=== PATIENT | male | born 1945 | race Caucasian/White ===

== ENCOUNTER 2017-08-09 22:20 | Inpatient (IN) ==
[2017-08-09] MEDS ORDERED: NS 1,000 ML IV ONE (22:28)
--- OUTSIDE RECORDS SUMMARY | 2017-08-09 22:47 | External Medical Summary | Summary of Care ---
:1945 Author Name Amos Brothers M.D. Address [address] [place] [address] Dr Georgia Ortega, [place] [address] Care Team Providers Name Role Phone Amos Brothers M.D. 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 Benign prostatic hypertrophy (BPH) with incomplete bladder emptying (600.01, N40.1) Status: Active Gross hematuria (599.71, R31.0) Status: Active Presence of indwelling urethral catheter (V45.89, Z98.89) Status: Active Encounter for antineoplastic chemotherapy (V58.11, Z51.11) Status: Active Malignant neoplasm of other specified sites of bladder (188.8, C67.9) Status : Active Epididymitis with no abscess (604.90, N45.1) Status: Active Urinary retention (788.20, R33.9) Status: Active Postoperative visit (V58.49, Z48.89) Status: Active Bladder cancer screening (V76.3, Z12.6) Status: Active History of bladder cancer (V10.51, Z85.51) Status: Active 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 Started 28-May-2015 ActiveLidocaine HCl - 2 % External Gel Refills: 0 Started 28-May-2015 ActiveDiphenhist 25 MG Oral Tablet TAKE 1 TABLET AT BEDTIME. Refills: 0 Started 28-May-2015 ActiveAleve 220 MG Oral Capsule Refills: 0 Started 28-May-2015 ActiveRanitidine HCl - 150 MG Oral Tablet Refills: 0 Started 28-May-2015 ActiveCoumadin 5 MG Oral Tablet TAKE 1 TABLET DAILY DIRECTED. Refills: 0 Started 28-May-2015 ActiveOndansetron 4 MG Oral Tablet Dispersible Refills: 0 Started 28-May-2015 ActiveMetFORMIN HCl - 850 MG Oral Tablet TAKE 1 TABLET TWICE DAILY WITH MEALS. Refills: 0 Started 28-May-2015 ActiveCinnamon 500 MG Oral Capsule TAKE DIRECTED. Refills: 0 Started 28-May-2015 ActiveSotalol HCl - 80 MG Oral Tablet TAKE 1 TABLET TWICE DAILY. Refills: 0 Started 28-May-2015 ActiveAllopurinol 300 MG Oral Tablet TAKE 1 TABLET DAILY. Refills: 0 Started 28-May-2015 ActiveSimvastatin 40 MG Oral Tablet TAKE 1 TABLET DAILY. Refills: 0 Started 28-May-2015 ActiveGlimepiride 2 MG Oral Tablet Refills: 0 Started 28-May-2015 ActiveFurosemide 20 MG Oral Tablet TAKE 1 TABLET DAILY. Refills: 0 Started 28-May-2015 ActiveLisinopril 40 MG Oral Tablet TAKE 1 TABLET DAILY. Refills: 0 Started 28-May-2015 Active Allergies and Adverse Reactions Name Dates Details Acetaminophen TABS Status: Active gemfibrozil Status: Active Lortab TABS Status: Active Past Medical History Name Dates Details Benign prostate hyperplasia (600.00, N40.0) Status: Active History of ACD (adult celiac disease) (579.0, K90.0) Status: Resolved History of arthritis (V13.4, Z87.39) Status: Resolved History of atrial fibrillation (V12.59, Z86.79) Status: Resolved History of Cataracts, both eyes (366.9, H26.9) Status: Resolved History of Coronary artery disease (414.00, I25.10) Status: Resolved History of diabetes mellitus (V12.29, Z86.39) Status: Resolved History of Dyslipidemia (272.4, E78.5) Status: Resolved 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, 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) Status: Resolved History of gout (V12.29, Z87.39) Status: Resolved History of Hallux valgus (735.0, M20.10) Status: Resolved History of hiatal hernia (V12.79, Z87.19) Status: Resolved History of hypertension (V12.59, Z86.79) Status: Resolved History of Hypertriglyceridemia (272.1, E78.1) Status: Resolved History of measles (V12.09, Z86.19) Status: Resolved History of obesity (V13.89, Z86.39) Status: Resolved History of Obstructive sleep apnea (327.23, G47.33) Status: Resolved History of urinary tract infection (V13.02, Z87.440) Status: Resolved History of varicella (V12.09, Z86.19) Status: Resolved Procedures Procedure Dates Details History of Tonsillectomy History of Pilonidal Cyst Resection History of Appendectomy History of Back Surgery History of Rotator Cuff Repair History of Colonoscopy History Of Prior Surgery History of Lumbar Vertebral Fusion History of Cystoscopy (Diagnostic) History of Transureth Resect Prostate (TURP) Complete, Incl Control Of Postop Bleeding CYTOLOGY - URINE 4444 Ordered:15-Sep-2015 Immunization Name Dates Details Immunizations not documented Family History Unknown Family Member Name Dates Details Family history of coronary artery disease (V17.3, Z82.49) Comments: Family History Status: Active Family history of diabetes mellitus (V18.0, Z83.3) Comments: Family History Status: Active Family history of arthritis (V17.7, Z82.61) Comments: Family History Status: Active Family history of asthma (V17.5, Z82.5) Comments: Family History Status: Active Mother Name Dates Details No pertinent family history Status: Active Social History Name Dates Details Smoking StatusFormer smoker Vital Signs Date Test Result Details 15-Sep-2015 09:51 BP Systolic 153 mm[Hg] Status: BP Diastolic 84 mm[Hg] Status: Heart Rate 80 /min Status: Height 71 in Status: Weight 250 lb Status: Body Mass Index Calculated 34.87 kg/m2 Status: Body Surface Area Calculated 2.32 m2 Status: Results Date Description Value Details Results not documented Plan of Care Planned Observations Name Dates Details Planned Goals not documented Goal Planned Encounters Appointment; Provider: Amos Brothers On 15-Dec-2015 10:00 Instructions Instructions not documented Encounters Appointment; Amos Brothers On 15-Sep-2015 Encounter Diagnosis: Problem not documented 10:00 Appointment; Amos Brothers On 09-Jun-2015 Encounter Diagnosis: Problem not documented 09:30
--- OUTSIDE RECORDS SUMMARY | 2017-08-09 22:47 | External Medical Summary | Summary of Care ---
:1945 Author Name Amos Brothers M.D. Address [address] [place] [address] Dr Georgia Ortega, [place] [address] Care Team Providers Name Role Phone Zev Morillo, Amos Unavailable Unavailable Reji Cervantes II Unavailable Unavailable Unavailable Unavailable Unavailable Functional Status Functional [...] Active Presence of indwelling urethral catheter (V45.89, Z96.0) Status: Active Encounter for antineoplastic chemotherapy (V58.11, Z51.11) Status: Active Malignant neoplasm of other specified sites of bladder (188.8, C67.9) Status : Active Epididymitis with no abscess (604.90, N45.1) Status: Active Urinary retention (788.20, R33.9) Status: Active Postoperative visit (V58.49, Z48.89) Status: Active Cellulitis, scrotum (608.4, N49.2) Status: Active History of Cellulitis, scrotum (608.4, N49.2) Status: Resolved Prophylactic antibiotic (V58.62, Z79.2) Status: Active Local recurrence of cancer of urinary bladder (188.9, C67.9) Status: Active Bladder cancer screening (V76.3, Z12.6) Status: Active History of bladder cancer (V10.51, Z85.51) Status: Active Incomplete bladder emptying (788.21, R33.9) Status: Active 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 Refills: 0 Start 28-May-2015 Active MetFORMIN HCl - 850 MG Oral Tablet TAKE 1 TABLET TWICE DAILY WITH MEALS. Refills: 0 Start 28-May-2015 Active Cinnamon 500 MG Oral Capsule TAKE 1 CAPSULE Twice daily at noon and bedtime Refills: 0 Start 28-May-2015 Active Sotalol HCl - 80 MG Oral Tablet TAKE 1 TABLET TWICE DAILY. Refills: 0 Start 28-May-2015 Active Allopurinol 300 MG Oral Tablet TAKE 1 TABLET DAILY. Refills: 0 Start 28-May-2015 Active Simvastatin 40 MG Oral Tablet TAKE 1 TABLET DAILY. Refills: 0 Start 28-May-2015 Active Glimepiride 2 MG Oral Tablet Take 1 tablet twice daily Refills: 0 Start 28-May-2015 Active Furosemide 20 MG Oral Tablet TAKE 1 TABLET DAILY. Refills: 0 Start 28-May-2015 Active Gabapentin 300 MG Oral Capsule TAKE 1 CAPSULE 3 TIMES DAILY. Refills: 0 Start 15-Dec-2015 Active TiZANidine HCl - 4 MG Oral Capsule TAKE 1 CAPSULE 3 times daily Refills: 0 Amos Brothers M.D. Start 15-Dec-2015 Active Pantoprazole Sodium 20 MG Oral Tablet Delayed Release TAKE 1 TABLET DAILY. Refills: 0 Start 17-Dec-2015 Active Ciprofloxacin HCl - 500 MG Oral Tablet TAKE 1 TABLET BEFORE PROCEDURE WITH DR. BROTHERS. Quantity: 1 Refills: 0 Amos Brothers M.D. Start 18-Sep-2016 Active Allergies and Adverse Reactions Name Dates Details Acetaminophen TABS (Allergy) Status: Active gemfibrozil (Allergy) Status: Active Lortab TABS (Allergy) Status: Active Past Medical History Name Dates Details Benign prostate hyperplasia (600.00, N40.0) Status: Active History of ACD (adult celiac disease) (579.0, K90.0) Status: Resolved History of arthritis (V13.4, Z87.39) Status: Resolved History of atrial fibrillation (V12.59, Z86.79) Status: Resolved History of Cataracts, both eyes (366.9, H26.9) Status: Resolved History of Cellulitis, scrotum (608.4, N49.2) Status: Resolved History of Coronary artery disease [...] (TURP) Complete, Incl Control Of Postop Bleeding History of Foot Surgery Right CYTOLOGY - URINE 4444 Ordered: 20-Sep-2016 Immunization Name Dates Details Immunizations not documented [...] Status: Active Social History Name Dates Details - Status: Smoking Status Name Dates Details Former smoker Vital Signs Date Test Result Details No Known Vitals to report Results Date Description Value Details Results not documented Plan of Care Name Dates Details Planned Observations Planned Goals not documented Planned Encounters Appointment; Provider: Amos Brothers M.D. On 22-Dec-2016 11:00 Interventions Provided Medication ChangesCiprofloxacin HCl - 500 MG Oral Tablet - StartLabs/Procedures/ ImagingCYTOLOGY - URINE 4444; To be Done: 20 Sep 2016 Instructions Name Dates Details Instructions not documented Encounters Appointment; Amos Brothers M.D. On 14-Jun-2016 Encounter Diagnosis: Problem not documented 09:30 Appointment; Amos Brothers M.D. On Encounter Diagnosis: Problem not documented 10:00 Appointment; Amos Brothers M.D. On 12-Jan-2016 Encounter Diagnosis: Problem not documented 09:00 Appointment; Amos Brothers M.D. On 05-Jan-2016 Encounter Diagnosis: Problem not documented 09:00 Appointment; Amos Brothers M.D. On 29-Dec-2015 Encounter Diagnosis: Problem not documented 09:30 Appointment; Aoms Brothers M.D. On 17-Dec-2015 Encounter Diagnosis: Problem not documented 09:15 Appointment; Amos Brothers M.D. On 15-Dec-2015 Encounter Diagnosis: Problem not documented 10:00 Appointment; Amos Brothers M.D. On 15-Sep-2015 Encounter Diagnosis: Problem not documented 10:00 Appointment; Amos Brothers M.D. On 09-Jun-2015 Encounter Diagnosis: Problem not documented 09:30
--- OUTSIDE RECORDS SUMMARY | 2017-08-09 22:47 | External Medical Summary | Summary of Care ---
:1945 Author Name Amos Brothers M.D. 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 Refills: 0 Started 28-May-2015 ActiveGabapentin 300 MG Oral Capsule TAKE 1 CAPSULE 3 TIMES DAILY. Refills: 0 Started 15-Dec-2015 ActiveTiZANidine HCl - 4 MG Oral Capsule Refills: 0 Amos Brothers M.D. Started 15-Dec-2015 ActiveClindamycin HCl - 300 MG Oral Capsule TAKE 1 CAPSULE 4 times daily Quantity: 56 Refills: 0 Amos Brothers M.D. Started 15-Dec-2015 Active Allergies and Adverse Reactions Name Dates [...] Of Postop Bleeding CYTOLOGY - URINE 4444 Ordered:15-Dec-2015 Immunization Name Dates Details Immunizations not documented [...] Planned Encounters Appointment; Provider: Amos Brothers On 10:00 Appointment; Provider: Amos Brothers On 17-Dec-2015 09:15 Instructions Instructions not documented Encounters Appointment; Amos Brothers On 15-Dec-2015 Encounter Diagnosis: Problem not documented 10:00 Appointment; Amos Brothers On 15-Sep-2015 Encounter Diagnosis: Problem not documented 10:00 Appointment; Amos Brothers On 09-Jun-2015 Encounter Diagnosis: Problem not documented 09:30
--- OUTSIDE RECORDS SUMMARY | 2017-08-09 22:48 | External Medical Summary | Summary of Care ---
:1945 Author Name Amos Brothers M.D. Address [address] [place] [address] Dr Georgia Ortega, [place] [address] Care Team Providers Name Role Phone Zev [...] Postop Bleeding History of Foot Surgery Right Procedures not documented Immunization Name Dates Details Immunizations not documented [...] to report Results Date Description Value Details -Sep-2016 15:59 CYTOLOGY - URINE 4444 CYTOLOGY Specimen referred to [facility]. Report to follow. Plan of Care Name Dates Details Planned Observations Planned Goals not documented Planned Encounters Appointment; Provider: Amos Brothers M.D. On 22-Dec-2016 11:00 Instructions Name Dates Details Instructions not documented Encounters Appointment; Amos Brothers M.D. On 20-Sep-2016 Encounter Diagnosis: Problem not documented 11:00 Appointment; Amos Brothers M.D. On 14-Jun-2016 Encounter [...] documented 09:30 Appointment; Amos Brothers M.D. On 17-Dec-2015 Encounter Diagnosis: Problem not documented 09:15 Appointment; Amos Brothers M.D. On 15-Dec-2015 Encounter Diagnosis: Problem not documented 10:00 Appointment; Amos Brothers M.D. On 15-Sep-2015 Encounter Diagnosis: Problem not documented 10:00 Appointment; Amos Brothers M.D. On 09-Jun-2015 Encounter Diagnosis: Problem not documented 09:30
--- OUTSIDE RECORDS SUMMARY | 2017-08-09 22:48 | External Medical Summary | Summary of Care ---
:1945 Author Name Amos Brothers M.D. Address [address] [place] [address] Dr Georgia Ortega, [place] [address] Care Team Providers Name Role Phone Amos [...] (TURP) Complete, Incl Control Of Postop Bleeding Procedures not documented Immunization Name Dates Details [...] m2 Status: Results Date Description Value Details 15-Sep-2015 13:31 CYTOLOGY - URINE 4444 CYTOLOGY Specimen referred to [facility]. Report to follow. (Better) Plan of Care Planned Observations Name Dates Details Planned Goals not documented Goal Planned Encounters Appointment; Provider: Amos Brothers On 15-Dec-2015 10:00 Instructions Instructions not documented Encounters Appointment; Amos Brothers On 15-Sep-2015 Encounter Diagnosis: Problem not documented 10:00 Appointment; Amos Brothers On 09-Jun-2015 Encounter Diagnosis: Problem not documented 09:30
--- OUTSIDE RECORDS SUMMARY | 2017-08-09 22:48 | External Medical Summary | Summary of Care ---
:1945 Author Name Amos Brothers M.D. Address [address] [place] [address] Dr Georgia Ortega, [place] [address] Care Team Providers Name Role Phone Amos [...] Planned Encounters Appointment; Provider: Amos Brothers On 15-Sep-2015 10:00 Instructions Instructions not documented Encounters Appointment; Amos Brothers On 09-Jun-2015 Encounter Diagnosis: Problem not documented 09:30
--- OUTSIDE RECORDS SUMMARY | 2017-08-09 22:48 | External Medical Summary | Summary of Care ---
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 Refills: 0 Start 28-May-2015 Active Gabapentin 100 MG Oral Capsule Refills: 0 Start 15-Dec-2015 Active Pantoprazole Sodium 20 MG Oral Tablet Delayed Release TAKE 1 TABLET DAILY. Refills: 0 Start 17-Dec-2015 Active Lisinopril-Hydrochlorothiazide 20-12.5 MG Oral Tablet Take one tablet by mouth daily Quantity: 30 Refills: 3 Start 05-Dec-2016 Active Mucinex D 60-600 MG Oral Tablet Extended Release 12 Hour TAKE 1 TABLET EVERY 12 HOURS. Refills: 0 Start 05-Dec-2016 Active Voltaren 1 % Transdermal Gel APPLY TO LOWER EXTREMITIES, 4 GM OF GEL TO AFFECTED AREA 4 TIMES DAILY. DO NOT APPLY MORE THAN 16 GM DAILY TO ANY ONE AFFECTED JOINT. Quantity: 1 Refills: 0 Start 05-Dec-2016 Active 100 GM Tube Nystatin-Triamcinolone 236667-7.1 UNIT/GM-% External Ointment APPLY SPARINGLY TO AFFECTED AREA(S) TWICE DAILY Refills: 0 Start 05-Dec-2016 Active Benadryl Allergy 25 MG Oral Capsule TAKE 1/4 TAB DAILY AT BEDTIME Refills: 0 Start 05-Dec-2016 Active Diphenoxylate-Atropine 2.5-0.025 MG Oral Tablet TAKE 1 TABLET 4 TIMES DAILY NEEDED FOR DIARRHEA. D/C AFTER 48 HOURS IF NO IMPROVEMENT. Quantity: 12 Refills: 0 Start 05-Dec-2016 Active Clotrimazole-Betamethasone 1-0.05 % External Cream APPLY SPARINGLY TO THE AFFECTED AREA(S) TWICE DAILY. Quantity: 45 Refills: 0 Amos Brothers M.D. Start 27-Dec-2016 Active Simvastatin 20 MG Oral Tablet Refills: 0 Patrick Morillo, Jaylan Start 16-Jan-2017 Active Cjqdyjje-Jxibxzmhy-ZT 1 % Otic Solution INSTILL 3 DROP 3 times daily Left ear Quantity: 1 Refills: 0 Patrick Steiner.Ronnie., Jaylan Start 16-Jan-2017 Active 10 ML Bottle Allergies and Adverse Reactions Name Dates Details Acetaminophen TABS (Allergy) Status: Active gemfibrozil (Allergy) Status: Active Lortab TABS (Allergy) Status: Active Wheat (Allergy) Status: Active Past Medical History Name Dates Details Benign prostate hyperplasia (600.00, N40.0) Status: Active History of arthritis (V13.4, Z87.39) Status: Resolved [...] History of Lumbar Vertebral Fusion History of Diagnostic Cystoscopy History of Transureth Resect Prostate (TURP) Complete, [...] (V17.5, Z82.5) Comments: Family History Status: Active Family history of lung disease (V19.8, Z83.6) Comments: Family History Status: Active Family history of Colon cancer (153.9, C18.9) Comments: Family History Status: Active Family history of lymphoma (V16.7, Z80.2) Comments: Family History Status: Active Social History Name Dates Details - Status: Smoking Status Name Dates Details Former smoker Vital Signs Date Test Result Details No Known Vitals to report Results Date Description Value Details 27-Dec-2016 18:07 CYTOLOGY - URINE 4444 CYTOLOGY Specimen referred to [facility]. Report to follow. Plan of Care Name Dates Details Planned Observations Planned Goals not documented Planned Encounters Appointment; Provider: Amos Brothers M.D. On 28-Mar-2017 09:30 Appointment; Provider: Jaylan Nguyen M.D. On 09:15 Interventions Provided Medication WfosvvpFalcbjhy-Pjpkwydeu-NM 1 % Otic Solution - Start Instructions Name Dates Details Instructions not documented Encounters Appointment; Amos Brothers M.D. On 27-Dec-2016 Encounter Diagnosis: Problem not documented 10:00 Appointment; Jaylan Nguyen M.D. On 05-Dec-2016 Encounter Diagnosis: Problem not documented 10:00 Appointment; Amos Brothers M.D. On 20-Sep-2016 Encounter [...]
--- OUTSIDE RECORDS SUMMARY | 2017-08-09 22:48 | External Medical Summary | Summary of Care ---
:1945 Author Name Patrick Morillo, Jaylan Address Unavailable Unavailable , Care Team Providers Name Role Phone Patrick Morillo, Jaylan Unavailable Unavailable Reji Cervantes II Unavailable Unavailable [...] cerumen impaction, left (389.8, H61.22) Status: Active Otitis externa, left (380.10, H60.92) [...] Start 05-Dec-2016 Active 100 GM Tube Nystatin-Triamcinolone 126592-3.1 UNIT/GM-% External Ointment APPLY SPARINGLY TO AFFECTED AREA(S) TWICE DAILY Refills: 0 Start 05-Dec-2016 Active Benadryl Allergy 25 MG Oral Capsule TAKE 1/4 TAB DAILY AT BEDTIME Refills: 0 Start 05-Dec-2016 Active Diphenoxylate-Atropine 2.5-0.025 MG Oral Tablet TAKE 1 TABLET 4 TIMES DAILY NEEDED FOR DIARRHEA. D/C AFTER 48 HOURS IF NO IMPROVEMENT. Quantity: 12 Refills: 0 Start 05-Dec-2016 Active Allergies and Adverse Reactions Name Dates [...] smoker Vital Signs Date Test Result Details 05-Dec-2016 10:24 Temperature 97.5 f Status: Comments: Method: Heart Rate 75 /min Status: Comments: Location: ; Physical Findings 18 Status: Comments: Respiration Weight 257 lb Status: Physical Findings 98 Status: Comments: O2 Saturation Body Mass Index Calculated 35.84 kg/m2 Status: Body Surface Area Calculated 2.35 m2 Status: Results Date Description Value Details Results not documented Plan of Care Name Dates Details Planned Observations Planned Goals not documented Planned Encounters Appointment; Provider: Jaylan Nguyen M.D. On 16-Jan-2017 10:00 Appointment; Provider: Amos Brothers M.D. On 27-Dec-2016 10:00 Interventions Provided Medication ChangesCiprofloxacin HCl - 500 MG Oral Tablet - Completed Instructions Name Dates Details Instructions not documented [...]
--- OUTSIDE RECORDS SUMMARY | 2017-08-09 22:48 | External Medical Summary | Summary of Care ---
:1945 Author Name Amos Brothers M.D. Address [address] [place] [address] Dr Georgia Ortega, [place] [address] Care Team Providers Name Role Phone Amos [...] Of Postop Bleeding CYTOLOGY - URINE 4444 Ordered:09-Jun-2015 Immunization Name Dates Details Immunizations not documented [...] smoker Vital Signs Date Test Result Details 09-Jun-2015 09:40 BP Systolic 159 mm[Hg] Status: BP Diastolic 101 mm[Hg] Status: Heart Rate 87 /min Status: Height 71 in Status: Weight [...]
--- OUTSIDE RECORDS SUMMARY | 2017-08-09 22:49 | External Medical Summary | Summary of Care ---
:1945 Author Name Patrick Morillo, Jaylan Address Unavailable Unavailable , Care Team Providers Name Role Phone Patrick Morillo, Jaylan Unavailable Unavailable eZv Morillo, Amos Unavailable Unavailable Reji Cervantes II [...] AND BEDTIME Refills: 0 Start 28-May-2015 Active Cinnamon 500 MG Oral Capsule TAKE 1 CAPSULE Twice daily at noon and bedtime Refills: 0 Start 28-May-2015 Active Clotrimazole-Betamethasone 1-0.05 % External Cream APPLY SPARINGLY TO THE AFFECTED AREA(S) TWICE DAILY. Quantity: 45 Refills: 0 Amos Brothers M.D. Start 27-Dec-2016 Active Lnpzllny-Hkxrccdgs-FU 1 % Otic Solution INSTILL 3 DROP 3 times daily Left ear Quantity: 1 Refills: 0 Jaylan Nguyen M.D. Start 16-Jan-2017 Active 10 ML Bottle Simvastatin 20 MG Oral Tablet Refills: 0 Jaylan Nguyen M.D. Start 16-Jan-2017 Active Diphenoxylate-Atropine 2.5-0.025 MG Oral Tablet TAKE 1 TABLET 4 TIMES DAILY NEEDED FOR DIARRHEA. D/C AFTER 48 HOURS IF NO IMPROVEMENT. Quantity: 12 Refills: 0 Start 05-Dec-2016 Active Benadryl Allergy 25 MG Oral Capsule TAKE 1/4 TAB DAILY AT BEDTIME Refills: 0 Start 05-Dec-2016 Active Nystatin-Triamcinolone 671903-3.1 UNIT/GM-% External Ointment APPLY SPARINGLY TO AFFECTED AREA(S) TWICE DAILY Refills: 0 Start 05-Dec-2016 Active Voltaren 1 % Transdermal Gel APPLY TO LOWER EXTREMITIES, 4 GM OF GEL TO AFFECTED AREA 4 TIMES DAILY. DO NOT APPLY MORE THAN 16 GM DAILY TO ANY ONE AFFECTED JOINT. Quantity: 1 Refills: 0 Start 05-Dec-2016 Active 100 GM Tube Mucinex D 60-600 MG Oral Tablet Extended Release 12 Hour TAKE 1 TABLET EVERY 12 HOURS. Refills: 0 Start 05-Dec-2016 Active Lisinopril-Hydrochlorothiazide 20-12.5 MG Oral Tablet Take one tablet by mouth daily Quantity: 30 Refills: 3 Start 05-Dec-2016 Active Pantoprazole Sodium 20 MG Oral Tablet Delayed Release TAKE 1 TABLET DAILY. Refills: 0 Start 17-Dec-2015 Active Gabapentin 100 MG Oral Capsule Refills: 0 Start 15-Dec-2015 Active Furosemide 20 MG Oral Tablet TAKE 1 TABLET DAILY. Refills: 0 Start 28-May-2015 Active Glimepiride 2 MG Oral Tablet Take 1 tablet twice daily Refills: 0 Start 28-May-2015 Active Allopurinol 300 MG Oral Tablet TAKE 1 TABLET DAILY. Refills: 0 Start 28-May-2015 Active Sotalol HCl - 80 MG Oral Tablet TAKE 1 TABLET TWICE DAILY. Refills: 0 Start 28-May-2015 Active MetFORMIN HCl - 850 MG Oral Tablet TAKE 1 TABLET TWICE DAILY WITH MEALS. Refills: 0 Start 28-May-2015 Active Coumadin 5 MG Oral Tablet TAKE 1 TABLET DAILY DIRECTED. Refills: 0 Start 28-May-2015 Active Allergies and Adverse Reactions Name [...] smoker Vital Signs Date Test Result Details 12:29 Temperature 97.5 f Status: Comments: Method: Heart Rate 90 /min Status: Comments: Location: ; Physical Findings 92 Status: Comments: O2 Saturation 09:12 Heart Rate 90 /min Status: Comments: Location: ; Physical Findings 95 Status: Comments: O2 Saturation Results Date Description Value Details Results not documented Plan of Care Name Dates Details Planned Observations Planned Goals not documented Planned Encounters Appointment; Provider: Amos Brothers M.D. On 28-Mar-2017 09:30 Instructions Name Dates Details Instructions not documented Encounters Appointment; Voorman, Jaylan, M.D. On Encounter Diagnosis: Problem not documented 09:15 Appointment; Jaylan Nguyen M.D. On 16-Jan-2017 Encounter Diagnosis: Problem not documented 10:00 Appointment; Amos Brothers M.D. On 27-Dec-2016 Encounter [...]
--- OUTSIDE RECORDS SUMMARY | 2017-08-09 22:49 | External Medical Summary | Summary of Care ---
:1945 Author Name Amos Brothers M.D. 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 Refills: 0 Started 9-May-2015 ActiveRanitidine HCl - 150 MG Oral Tablet TAKE 1 TABLET Twice daily AT NOON AND BEDTIME Refills: 0 Started 28-May-2015 ActiveFurosemide 20 MG Oral Tablet TAKE 1 TABLET DAILY. Refills: 0 Started 28-May-2015 ActiveAllopurinol 300 MG Oral Tablet TAKE 1 TABLET DAILY. Refills: 0 Started 28-May-2015 ActiveSotalol HCl - 80 MG Oral Tablet TAKE 1 TABLET TWICE DAILY. Refills: 0 Started 28-May-2015 ActiveGlimepiride 2 MG Oral Tablet Take 1 tablet twice daily Refills: 0 Started 28-May-2015 ActiveMetFORMIN HCl - 850 MG Oral Tablet TAKE 1 TABLET TWICE DAILY WITH MEALS. Refills: 0 Started 28-May-2015 ActiveCinnamon 500 MG Oral Capsule TAKE 1 CAPSULE Twice daily at noon and bedtime Refills: 0 Started 28-May-2015 ActiveSimvastatin 40 MG Oral Tablet TAKE 1 TABLET DAILY. Refills: 0 Started 28-May-2015 ActiveGabapentin 300 MG Oral Capsule TAKE 1 CAPSULE 3 TIMES DAILY. Refills: 0 Started 15-Dec-2015 ActiveTiZANidine HCl - 4 MG Oral Capsule TAKE 1 CAPSULE 3 times daily Refills: 0 Amos Brothers M.D. Started 15-Dec-2015 ActivePantoprazole Sodium 20 MG Oral Tablet Delayed Release TAKE 1 TABLET DAILY. Refills: 0 Started 17-Dec-2015 Active Allergies and Adverse Reactions Name Dates [...] On 10:00 Appointment; Provider: Amos Brothers On 12-Jan-2016 09:00 Instructions Instructions not documented Encounters Appointment; Amos Brothers On 05-Jan-2016 Encounter Diagnosis: Problem not documented 09:00 Appointment; Amos Brothers On 29-Dec-2015 Encounter Diagnosis: Problem not documented 09:30 Appointment; Amos Brothers On 17-Dec-2015 Encounter Diagnosis: Problem not documented 09:15 Appointment; Amos Brothers On 15-Dec-2015 Encounter Diagnosis: Problem not documented 10:00 Appointment; Amos Brothers On 15-Sep-2015 Encounter Diagnosis: Problem not documented 10:00 Appointment; Amos Brothers On 09-Jun-2015 Encounter Diagnosis: Problem not documented 09:30
--- OUTSIDE RECORDS SUMMARY | 2017-08-09 22:49 | External Medical Summary | Referral Summary ---
:1945 Author Organization [facility] Address [address] [place] [address] Care Team Providers Name Role Phone Reji Cervantes II Primary Care Physician Encounter [facility] [id number] Date(s): 05/05/16 - 05/05/16 [facility] [address] [place] [address] Discharge Disposition: 01-Home or Self Care Attending Physician: Darrin Hall MD Admitting Physician: Darrin Hall MD Vital Signs Most recent to oldest [Reference Range]: 1 Temperature Temporal Artery [36.3-37.8 degC] 36.2 degC *LOW* (05/05/16 2:36 PM) Peripheral Pulse Rate [60-100 bpm] 74 bpm (05/05/16 2:36 PM) Heart Rate Monitored [60-100 bpm] 82 bpm (05/05/16 1:41 PM) Respiratory Rate [14-20 br/min] 16 br/min (05/05/16 2:36 PM) Blood Pressure [90-140/60-90 mmHg] 120/90 mmHg (05/05/16 2:36 PM) SpO2 93 % (05/05/16 2:36 PM) Problem List Condition Effective Dates Status Health Status Informant Atrial fibrillation(Confirmed) Active patient Diabetes(Confirmed) Active patient Hyperlipidemia(Confirmed) Active patient HTN (hypertension)(Confirmed) Active patient Muscle spasm(Confirmed) Active patient Allergies, Adverse Reactions, Alerts Substance Reaction Severity Status Glutens Active Tylenol Headache Active Medications allopurinol 300 mg oral tablet 300 mg 1 tabs, Oral, Daily, # 90 tabs, 0 Refill(s) Start Date: 05/04/16 Status: OrderedBenadryl 10 mg, Oral, Bedtime (once a day), 0 Refill(s) Start Date: 05/04/16 Status: Orderedcinnamon 2 tabs, Oral, BID, 0 Refill(s) Start Date: 05/04/16 Status: Orderedfurosemide 20 mg oral tablet 20 mg 1 tabs, Oral, Daily, # 30 tabs, 0 Refill(s) Start Date: 05/04/16 Status: Orderedgabapentin 100 mg oral capsule 100 mg 1 caps, Oral, TID, # 90 caps, 0 Refill(s) Start Date: 05/04/16 Status: Orderedglimepiride 2 mg oral tablet 2 mg 1 tabs, Oral, BID, # 30 tabs, 0 Refill(s) Start Date: 05/04/16 Status: Orderedlisinopril-hydrochlorothiazide 20 mg-12.5 mg oral tablet 1 tabs, Oral, Daily, # 30 tabs, 0 Refill(s) Start Date: 05/04/16 Status: OrderedmetFORMIN 850 mg oral tablet 850 mg 1 tabs, Oral, BID, # 180 tabs, 0 Refill(s) Start Date: 05/04/16 Status: Orderedpantoprazole 20 mg oral delayed release tablet 20 mg 1 tabs, Oral, Daily, 0 Refill(s) Start Date: 05/04/16 Status: Orderedranitidine 150 mg oral tablet 150 mg 1 tabs, Oral, BID, 0 Refill(s) Start Date: 05/04/16 Status: Orderedsimvastatin 40 mg, Oral, Bedtime (once a day), 0 Refill(s) Start Date: 05/04/16 Status: Orderedsotalol 80 mg oral tablet 80 mg 1 tabs, Oral, BID, # 180 tabs, 0 Refill(s) Start Date: 05/04/16 Status: OrderedtiZANidine 4 mg oral tablet 4 mg 1 tabs, Oral, Daily, # 90 tabs, 0 Refill(s) Start Date: 05/04/16 Status: Orderedwarfarin 5 mg oral tablet See Instructions, DIRECTED, 0 Refill(s) Start Date: 05/04/16 Status: Ordered Results Hematology Most recent to oldest [Reference Range]: 1 WBC [4.8-10.8 10*3/uL] 10.0 10*3/uL (05/05/16 8:29 AM) RBC [4.60-6.20] 4.36 *LOW* (05/05/16 8:29 AM) Hgb [14.0-18.0 gm/dL] 14.0 gm/dL (05/05/16 8:29 AM) Hct [42.0-52.0 %] 41.9 % *LOW* (05/05/16 8:29 AM) MCV [82.0-99.0 fL] 96.1 fL (05/05/16 8:29 AM) MCH [27.0-32.0 pg] 32.1 pg *HI* (05/05/16 8:29 AM) MCHC [32.0-36.0 gm/dL] 33.4 gm/dL (05/05/16 8:29 AM) RDW [11.5-14.5 %] 14.2 % (05/05/16 8:29 AM) Platelet [150-400 10*3/uL] 221 10*3/uL (05/05/16 8:29 AM) MPV [9.4-12.3 fL] 9.2 fL *LOW* (05/05/16 8:29 AM) Coagulation Most recent to oldest [Reference Range]: 1 INR [0.9-1.2] 1.1 (05/05/16 8:29 AM) Chemistry Most recent to oldest [Reference Range]: 1 Sodium Lvl [136-144 mEq/L] 137 mEq/L (05/05/16 8:29 AM) Potassium Lvl [3.6-5.1 mEq/L] 4.2 mEq/L (05/05/16 8:29 AM) Chloride [99-109 mEq/L] 105 mEq/L (05/05/16 8:29 AM) CO2 [22-32 mEq/L] 25 mEq/L (05/05/16 8:29 AM) AGAP [3-20] 7 (05/05/16 8:29 AM) BUN [4-20 mg/dL] 33 mg/dL *HI* (05/05/16 8:29 AM) Glucose Lvl [70-100 mg/dL] 137 mg/dL *HI* (05/05/16 8:29 AM) Creatinine Lvl [0.64-1.27 mg/dL] 0.83 mg/dL (05/05/16 8:29 AM) eGFR [>60] >60 1 (05/05/16 8:29 AM) Calcium Lvl [8.6-10.0 mg/dL] 9.3 mg/dL (05/05/16 8:29 AM) 1Result Comment: Multiply eGFR results by 1.21 for race. Immunizations No data available for this section Procedures Procedure Date Related Diagnosis Body Site Bunionectomy1 05/05/16 Appendectomy bladder tumor bone spur removed from spine colonsocopy cyst removed from the spine heart cath left knee replacement rotator cuff spinal fusion tonsils turp 1auto-populated from documented surgical case Social History Social History Type Response Smoking Status Never smoker Assessment and Plan No data available for this section
--- OUTSIDE RECORDS SUMMARY | 2017-08-09 22:49 | External Medical Summary | Summary of Care ---
:1945 Author Name Amos Brothers M.D. Address [address] [place] [address] Dr Georgia Ortega, [place] [address] Care Team Providers Name Role Phone Amos [...] of Cellulitis, scrotum (608.4, N49.2) Status: Resolved Medications Name Dates Details Ranitidine HCl - 150 MG Oral Tablet TAKE 1 TABLET Twice daily AT NOON AND BEDTIME Refills: 0 Started -May-2015 ActiveCoumadin 5 MG Oral Tablet TAKE 1 TABLET DAILY DIRECTED. Refills: 0 Started 28-May-2015 ActiveMetFORMIN HCl - 850 MG Oral Tablet TAKE 1 TABLET TWICE DAILY WITH MEALS. Refills: 0 Started 28-May-2015 ActiveCinnamon 500 MG Oral Capsule TAKE 1 CAPSULE Twice daily at noon and bedtime Refills: 0 Started 28-May-2015 ActiveSotalol HCl - 80 MG Oral Tablet TAKE 1 TABLET TWICE DAILY. Refills: 0 Started 28-May-2015 ActiveAllopurinol 300 MG Oral Tablet TAKE 1 TABLET DAILY. Refills: 0 Started 28-May-2015 ActiveSimvastatin 40 MG Oral Tablet TAKE 1 TABLET DAILY. Refills: 0 Started 28-May-2015 ActiveGlimepiride 2 MG Oral Tablet Take 1 tablet twice daily Refills: 0 Started 28-May-2015 ActiveFurosemide 20 MG [...] smoker Vital Signs Date Test Result Details 12-Jan-2016 08:59 BP Systolic 136 mm[Hg] Status: BP Diastolic 86 mm[Hg] Status: Heart Rate 82 /min Status: Height 71 in Status: Weight 250 lb Status: Body Mass Index Calculated 34.87 kg/m2 Status: Body Surface Area Calculated 2.32 m2 Status: Results Date Description Value Details Results not documented Plan of Care Planned Observations Name Dates Details Planned Goals not documented Goal Planned Encounters Appointment; Provider: Amos Brothers On 10:00 Instructions Instructions not documented Encounters Appointment; Amos Brothers On 12-Jan-2016 Encounter Diagnosis: Problem not documented 09:00 Appointment; Amos Brothers On 05-Jan-2016 Encounter Diagnosis: [...]
--- OUTSIDE RECORDS SUMMARY | 2017-08-09 22:49 | External Medical Summary | Summary of Care ---
:1945 Author Name Amos Brothers M.D. Address [address] [place] [address] Dr Georgia Ortega, [place] [address] Care Team Providers Name Role Phone Amos Brothers M.D. Unavailable Unavailable Reji Cervantes II Primary Care Provider Unavailable Unavailable Unavailable Unavailable Functional Status Functional Status Health Issues Name Dates Details Functional status health issues are not documented Status: Cognitive Status Health Issues Name Dates Details Cognitive status health issues are not documented Status: Problems Name Dates Details Bladder tumor (239.4, D49.4) Status: Active Diverticula, [...] Active Cellulitis, scrotum (608.4, N49.2) Status: Active Benign prostate hyperplasia (600.00, N40.0) Status: Active Medications Name Dates Details Ranitidine HCl - [...] 1 TABLET DAILY. Refills: 0 Started 17-Dec-2015 ActiveBenicar 40 MG Oral Tablet TAKE 1/2 TABLET DAILY. Refills: 0 Started 17-Dec-2015 Active [...] Resolved Procedures Procedure Dates Details History of Transureth Resect Prostate (TURP) Complete, Incl Control Of Postop Bleeding History of Cystoscopy (Diagnostic) History of Lumbar Vertebral Fusion History Of Prior Surgery History of Colonoscopy History of Rotator Cuff Repair History of Back Surgery History of Appendectomy History of Pilonidal Cyst Resection History of Tonsillectomy CYTOLOGY - URINE 4444 Ordered:15-Dec-2015 Immunization Name Dates Details Immunizations not documented Family History Unknown Family Member Name Dates Details Family history of asthma (V17.5, Z82.5) Comments: Family History Status: Active Family history of arthritis (V17.7, Z82.61) Comments: Family History Status: Active Family history of diabetes mellitus (V18.0, Z83.3) Comments: Family History Status: Active Family history of coronary artery disease (V17.3, Z82.49) Comments: Family History Status: Active Mother Name [...] On 10:00 Appointment; Provider: Amos Brothers On 29-Dec-2015 09:30 Instructions Instructions not documented Encounters Appointment; Amos Brothers On 17-Dec-2015 Encounter Diagnosis: Problem not documented 09:15 Appointment; Amos Brothers On 15-Dec-2015 Encounter Diagnosis: Problem not documented 10:00 Appointment; Amos Brothers On 15-Sep-2015 Encounter Diagnosis: Problem not documented 10:00 Appointment; Amos Brothers On 09-Jun-2015 Encounter Diagnosis: Problem not documented 09:30
--- OUTSIDE RECORDS SUMMARY | 2017-08-09 22:49 | External Medical Summary | Summary of Care ---
:1945 Author Name Amos Brothers M.D. 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 Refills: 0 Start 17-Dec-2015 Active Allergies and Adverse Reactions Name [...] Of Postop Bleeding CYTOLOGY - URINE 4444 Ordered: Immunization Name Dates Details Immunizations not documented [...] smoker Vital Signs Date Test Result Details 09:55 BP Systolic 143 mm[Hg] Status: Comments: Location: ; Position: BP Diastolic 88 mm[Hg] Status: Comments: Location: ; Position: Heart Rate 81 /min Status: Comments: Location: ; Height 71 in Status: Weight 250 lb Status: Body Mass Index Calculated 34.87 kg/m2 Status: Body Surface Area Calculated 2.32 m2 Status: Results Date Description Value Details Results not documented Plan of Care Name Dates Details Planned Observations Planned Goals not documented Planned Encounters Appointment; Provider: Amos Brothers M.D. On 14-Jun-2016 09:30 Interventions Provided Labs/Procedures/ImagingCYTOLOGY - URINE 4444; To be Done: 15 Mar 2016 Instructions Name Dates Details Instructions not documented Encounters Appointment; Amos Brothers M.D. On 12-Jan-2016 Encounter [...]
--- OUTSIDE RECORDS SUMMARY | 2017-08-09 22:49 | External Medical Summary | Summary of Care ---
:1945 Author Name Amos Brothers M.D. Address [address] [place] [address] Dr Georgia Ortega, [place] [address] Care Team Providers Name Role Phone Amos [...]
--- OUTSIDE RECORDS SUMMARY | 2017-08-09 22:49 | External Medical Summary | Summary of Care ---
:1945 Author Name Amos Brothers M.D. Address [address] [place] [address] Dr Georgia Ortega, [place] [address] Care Team Providers Name Role Phone Amos [...] N49.2) Status: Active Medications Name Dates Details Ranitidine [...] On 10:00 Appointment; Provider: Amos Brothers On 05-Jan-2016 09:00 Instructions Instructions not documented Encounters Appointment; Amos Brothers On 29-Dec-2015 Encounter Diagnosis: Problem not documented 09:30 Appointment; Amos Brothers On 17-Dec-2015 Encounter Diagnosis: Problem not documented 09:15 Appointment; Amos Brothers On 15-Dec-2015 Encounter Diagnosis: Problem not documented 10:00 Appointment; Amos Brothers On 15-Sep-2015 Encounter Diagnosis: Problem not documented 10:00 Appointment; Amos Brothers On 09-Jun-2015 Encounter Diagnosis: Problem not documented 09:30
--- OUTSIDE RECORDS SUMMARY | 2017-08-09 22:50 | External Medical Summary | Summary of Care ---
:1945 Author Name Amos Brothers M.D. 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) [...] smoker Vital Signs Date Test Result Details 14-Jun-2016 09:53 BP Systolic 151 mm[Hg] Status: Comments: Location: ; Position: BP Diastolic 87 mm[Hg] Status: Comments: Location: ; Position: Heart Rate 87 /min Status: Comments: Location: ; Height 71 in Status: Results Date Description Value Details Results not documented Plan of Care Name Dates Details Planned Observations Planned Goals not documented Interventions Provided Medication ChangesCiprofloxacin HCl - 500 MG Oral Tablet - Completed Instructions Name Dates Details Instructions not documented Encounters Appointment; Amos Brothers M.D. On Encounter Diagnosis: [...]
--- OUTSIDE RECORDS SUMMARY | 2017-08-09 22:50 | External Medical Summary | Summary of Care ---
:1945 Author Name Amos Brothers M.D. Address [address] [place] [address] Dr Georgia Ortega, [place] [address] Care Team Providers Name Role Phone Zev [...] Provider: Amos Brothers M.D. On 14-Jun-2016 09:30 Instructions Name Dates Details Instructions not [...]
--- OUTSIDE RECORDS SUMMARY | 2017-08-09 22:50 | External Medical Summary | Continuity of Care Document ---
:1945 Author Organization [facility] Allergies There is no data. Medications There is no data. Problems There is no data. Procedures There is no data. Results There is no data. Encounters ACCT Visit Discharge Status Pt. Type Provider Facility Loc./Unit Complaint No. Date/Time [id number] 08/01/2017 08/01/2017 CLS Outpatient Keyla, 12:40:39 23:59:59 , George Segundo
--- OUTSIDE RECORDS SUMMARY | 2017-08-09 22:50 | External Medical Summary | Summary of Care ---
:1945 Author Name Amos Brothers M.D. Address [address] [place] [address] [place] [address] Care Team Providers Name Role Phone Zev [...] Otitis externa, left (380.10, H60.92) Status: Active Bladder cancer screening (V76.3, Z12.6) Status: Active History of bladder cancer (V10.51, Z85.51) Status: Active Balanitis (607.1, N48.1) Status: Active Yeast infection of the skin (112.3, B37.2) Status: Active Medications Name Dates Details RaNITidine [...] Start 05-Dec-2016 Active 100 GM Tube Nystatin-Triamcinolone 688216-2.1 UNIT/GM-% External Ointment APPLY SPARINGLY TO AFFECTED [...] AREA(S) TWICE DAILY. Quantity: 45 Refills: 0 Zev JatinMikayla Amos Start 27-Dec-2016 Active Allergies and Adverse Reactions Name Dates [...] 09:30 Appointment; Provider: Jaylan Nguyen M.D. On 16-Jan-2017 10:00 Interventions Provided Medication ChangesClotrimazole-Betamethasone 1-0.05 % External Cream - Start Instructions Name Dates Details Instructions not documented Encounters Appointment; Jaylan Nguyen M.D. On 05-Dec-2016 Encounter [...]
--- OUTSIDE RECORDS SUMMARY | 2017-08-09 22:50 | External Medical Summary | Summary of Care ---
[...] Start 05-Dec-2016 Active 100 GM Tube Nystatin-Triamcinolone 991242-3.1 UNIT/GM-% External Ointment APPLY SPARINGLY TO AFFECTED [...] 0 Patrick Morillo, Jaylan Start 16-Jan-2017 Active Saifgksn-Afjhtxxja-TO 1 % Otic Solution INSTILL 3 DROP [...] smoker Vital Signs Date Test Result Details 09:12 Heart Rate 90 /min Status: Comments: Location: ; Physical Findings 95 Status: Comments: O2 Saturation Results Date Description Value Details Results not documented Plan of Care Name Dates Details Planned Observations Planned Goals not documented Planned Encounters Appointment; Provider: Amos Brothers M.D. On 28-Mar-2017 09:30 Appointment; Provider: Jaylan Nguyen M.D. On 12:15 Instructions Name Dates Details Instructions not documented Encounters Appointment; Jaylan Nguyen M.D. On 16-Jan-2017 Encounter [...]
--- OUTSIDE RECORDS SUMMARY | 2017-08-09 22:50 | External Medical Summary | Summary of Care ---
:1945 Author Name Amos Brothers M.D. Address [address] [place] [address] [place] [address] Care Team Providers Name Role Phone Zev [...] Start 05-Dec-2016 Active 100 GM Tube Nystatin-Triamcinolone 032312-1.1 UNIT/GM-% External Ointment APPLY SPARINGLY TO AFFECTED [...] m2 Status: Results Date Description Value Details 27-Dec-2016 18:07 CYTOLOGY - URINE 4444 CYTOLOGY Specimen referred to [facility]. Report to follow. Plan of Care Name Dates Details Planned Observations Planned Goals not documented Planned Encounters Appointment; Provider: Amos Brothers M.D. On 28-Mar-2017 09:30 Appointment; Provider: Jaylan Nguyen M.D. On 16-Jan-2017 10:00 Instructions Name Dates Details Instructions not documented [...]
--- OUTSIDE RECORDS SUMMARY | 2017-08-09 22:50 | External Medical Summary | Summary of Care ---
:1945 Author Name Amos Brothers M.D. Address [address] [place] [address] Dr Georgia Ortega, [place] [address] Care Team Providers Name Role Phone Amos [...]
[2017-08-09] MEDS ORDERED: DEXTROSE 50% SYRINGE 50ml (1 AMP) IVP ONE (22:56)
--- NOTE | 2017-08-09 23:18 | Emergency Department Report ---
Seizure HPI - General Chief Complaint: Medical Emergency Stated Complaint: seizure Time Seen by Provider: 08/09/17 22:28 Source: patient, family, EMS, old records reviewed Mode of arrival: EMS Limitations: altered mental status - History of Present Illness HPI Narrative: 72yo man presents to the ER today for evaluation after a seizure. Pt was lying on his bed tonight; he checked his BG and found it to be in the 20's. Shortly thereafter, pt seized. EMS was called and gave pt 1amp of D50 with improvement of glucose into 160s. On arrival in the ER, pts BG was in the 80s. He was given orange juice with sugar stirred in while being evaluated, but BG was shortly found to be in the 30s again. Pt only takes metformin for his diabetes. Denies other hypoglycemics or insulin use. States that he has been eating copious amounts of sugar recently. Pt was supposed to f/u with his PCM today for routine , quarterly eval, but didn't due to seeing him recently for a groin infx. Cannot tell what his recent sugars have been; does not know what his last A1c was, despite having it drawn 3mos ago. Has never had BG in the 20s before. Has not seized with low BG before. MD complaint: seizure Onset (ago): minute(s) Description of Episode: loss of consciousness, tonic-clonic movement Witnessed: yes - by other (Family) Trauma: No Seizure History: none Place: home Possible Precipitating Event: other (Low blood sugar) Associated symptoms: confusion Treatments prior to arrival: other (D50) - Related Data Home Medications Medication Instructions Recorded Confirmed Allopurinol 300 mg PO DAILY #0 11/07/10 08/10/17 Furosemide [Lasix] 20 mg PO DAILY #0 11/07/10 08/10/17 Glimepiride 2 mg PO BID #0 01/27/12 Cinnamon Bark [Cinnamon] 500 mg PO NOON AND HS #0 06/02/13 Sotalol HCl [Sotalol] 80 mg PO BID #0 06/02/13 08/10/17 raNITIdine HCl [Ranitidine HCl] 150 mg PO NOON & HS #0 06/02/13 Warfarin Sodium [Coumadin] 5 mg PO DAILY #0 05/25/14 08/10/17 Simvastatin 40 mg PO HS #0 06/02/14 08/10/17 Metformin HCl 850 mg PO BIDWM #0 07/16/14 08/10/17 Gabapentin 100 mg PO TID #0 11/22/15 08/10/17 Pantoprazole Sodium 20 mg PO DAILY #0 11/22/15 08/10/17 Lisinopril/Hydrochlorothiazide 1 tab PO DAILY #0 03/26/16 08/10/17 [Lisinopril-Hctz 20-12.5 mg Tab] Ciprofloxacin HCl [Ciprofloxacin 500 mg PO BID 08/10/17 08/10/17 HCl] Fluconazole [Diflucan] 150 mg PO DAILY 08/10/17 08/10/17 Multivit-Minerals/FA/Lycopene 1 tab PO DAILY 08/10/17 08/10/17 [One-A-Day Men's Tablet] diphenhydrAMINE HCl [Benadryl 6.25 mg PO HS 08/10/17 08/10/17 Allergy] Allergies Allergy/AdvReac Type Severity Reaction Status Date / Time gluten Allergy Unknown Verified 08/09/17 22:38 hydrocodone Allergy Unknown Verified 08/09/17 22:38 gemfibrozil AdvReac Severe DIARRHEA Verified 08/09/17 22:38 acetaminophen AdvReac Unknown HEADACHES Verified 08/09/17 22:38 aspirin AdvReac Unknown SENSITIVE Verified 08/09/17 22:38 STOMACH Review of Systems All systems: reviewed and negative PFSH Patient Stated Medical History Peripheral Neuropathy Yes Other HEENT Yes: GLASSES Cardiac Arrhythmia Yes: A-FIB Hypertension Yes Diabetes Mellitus Type 2 Yes Gastroesophageal Reflux Yes Disease Hiatal Hernia Yes Other Yes: TESTICULAR INFECTIONS Clotting Problems Yes: ANTICOAGULATION Other Musculoskeletal Yes: GOUT Cellulitis Yes Medical History Updates: Gout. CHF. DM. HTN. GERD. HL. A-fib Physical Exam - Limitations Limitations: altered mental status (Pt is confused and has trouble with recall) - General General appearance: alert, in no apparent distress, obese - Normal Exams: Head:: Normocephalic without trauma Eyes:: Pupils are PERRLA w/ EOMI, No scleral icterus, irritation, or foreign bodies noted ENMT:: No facial trauma, nasal exudates, pharyngeal erythema, or exudates are noted Neck:: Full range of motion, without adenopathy Chest/Respirations:: Clear all hernandez, with good airflow, and symmetry bilaterally Cardiovascular:: Regular rate and rhythm, without murmur or gallop, Pulses 2+ all extremities, capillary refill, <2 seconds all extremities Abdomen:: Bowel sounds positive, soft, non-tender, non-distended, no hepatosplenomegaly, masses or bruits noted Lymphatic:: No lymphadenopathy Musculoskeletal:: No tenderness, or deformity noted, good range of motion, all extremities Integumentary:: No rashes, hives, or bruising noted Neurological:: Patient is alert, and oriented, cranial nerves, motor/sensory/ cerebellar, exams w/o gross deficits Psychiatric:: Patient exhibits, appropriate attention Course - Consultations Consultation #1: Rick Telemed: Will admit for observation and BG control. Time: 00:53 Vital Signs Temperature 97.9 F 08/09/17 22:20 Pulse Rate 89 08/09/17 22:20 Respiratory Rate 20 08/09/17 22:20 Blood Pressure 140/72 H 08/09/17 22:20 Pulse Oximetry 98 08/09/17 22:20 Temperature 97.9 F 08/09/17 22:20 Pulse Rate 87 08/10/17 01:00 Respiratory Rate 22 08/10/17 01:00 Blood Pressure 122/58 08/10/17 01:00 Pulse Oximetry 96 08/10/17 01:00 Seizure - MDM Narrative Medical decision making narrative: Pt with significant difficulty with recall on exam. is unconcerned with pts apparent confusion; unclear whether this is pts cognitive baseline (ie microvascular dementia) or whether he is just post-ictal. Pts BG remains labile. Review of his prior rx's shows glimepiride, which could account for hypoglycemia. Will draw labs to eval for possible causes of hypoglycemia. Pt is currently written for glimepiride. Denies OD, but likely unintentional OD. Pts BG now stable on 125mg/hr of D10NS. Will contact hospitalist for overnight obs. - Differential Diagnosis Likely: generalized seizure (Hypoglycemia; accidental medication overdose; infection) - Medical Records Attestation: I reviewed the patient's medical records. - Lab Data Attestation: I reviewed the patient's lab results. Result diagrams: 08/09/17 23:32 08/09/17 23:32 Lab Results 08/09/17 08/09/17 08/09/17 Range/Units 22:53 23:32 23:32 WBC 11.6 H (4.5-11.0) T/MM3 RBC 3.92 L (4.50-5.90) M/MM3 Hgb 12.4 L (13.5-17.5) GM/DL Hct 37.6 L (41-53) % MCV 95.9 (80-100) UM3 MCH 31.6 (26-34) UUG MCHC 33.0 (31-37) GM/DL RDW Std Deviation 46.3 (36.9-50.2) FL Plt Count 214 (130-400) T/MM3 MPV 9.1 L (9.4-12.4) UM3 Immature Gran % (Auto) 0.3 (0.0-0.5) % Neut % (Auto) 79.5 H (33-66) % Lymph % (Auto) 10.5 L (23-45) % Dawson % (Auto) 8.5 (0-9.0) % Eos % (Auto) 0.9 (0-4) % Baso % (Auto) 0.3 (0-2) % Neut # (Auto) 9.2 H (1.8-7.7) T/MM3 Lymph # (Auto) 1.2 (1-4.8) T/MM3 Dawson # (Auto) 1.0 H (0-0.8) T/MM3 Eos # (Auto) 0.1 (0-0.5) T/MM3 Baso # (Auto) 0.0 (0-0.2) T/MM3 Abs Immat Gran (auto) 0.04 H (0.00-0.03) T/MM3 Turbidity < 20 (0-20) Sodium 138 (134-144) MEQ/L Potassium 4.3 (3.6-5) MEQ/L Chloride 101 (98-107) MEQ/L Carbon Dioxide 28 (22-30) MEQ/L Anion Gap 9 (5-15) MEQ/L BUN 15.0 (9-20) MG/DL Creatinine 0.8 (0.8-1.5) MG/DL GFR Calculation 94 BUN/Creatinine Ratio 19 (6-26) RATIO Glucose 65 L (75-110) MG/DL Glucometer 36 (65-110) mg/dL Calculated Osmolality 265 (261-280) MOSM/KG Calcium 8.1 L (8.4-10.2) MG/DL Magnesium 1.6 (1.6-2.3) MG/DL Icterus Index < 2 (0-7) Prolactin 13.4 NG/ML Specimen Hemolysis < 15 (0-25) B-Hydroxybutyrate 0.10 (0-0.6) MMOL/L 08/09/ Range/Units 23:53 WBC (4.5-11.0) T/MM3 RBC (4.50-5.90) M/MM3 Hgb (13.5-17.5) GM/DL Hct (41-53) % MCV (80-100) UM3 MCH (26-34) UUG MCHC (31-37) GM/DL RDW Std Deviation (36.9-50.2) FL Plt Count (130-400) T/MM3 MPV (9.4-12.4) UM3 Immature Gran % (Auto) (0.0-0.5) % Neut % (Auto) (33-66) % Lymph % (Auto) (23-45) % Dawson % (Auto) (0-9.0) % Eos % (Auto) (0-4) % Baso % (Auto) (0-2) % Neut # (Auto) (1.8-7.7) T/MM3 Lymph # (Auto) (1-4.8) T/MM3 Dawson # (Auto) (0-0.8) T/MM3 Eos # (Auto) (0-0.5) T/MM3 Baso # (Auto) (0-0.2) T/MM3 Abs Immat Gran (auto) (0.00-0.03) T/MM3 Turbidity (0-20) Sodium (134-144) MEQ/L Potassium (3.6-5) MEQ/L Chloride (98-107) MEQ/L Carbon Dioxide (22-30) MEQ/L Anion Gap (5-15) MEQ/L BUN (9-20) MG/DL Creatinine (0.8-1.5) MG/DL GFR Calculation BUN/Creatinine Ratio (6-26) RATIO Glucose (75-110) MG/DL Glucometer 62 (65-110) mg/dL Calculated Osmolality (261-280) MOSM/KG Calcium (8.4-10.2) MG/DL Magnesium (1.6-2.3) MG/DL Icterus Index (0-7) Prolactin NG/ML Specimen Hemolysis (0-25) B-Hydroxybutyrate (0-0.6) MMOL/L - Radiology Data [facility] Radiology Attestation Statement: I reviewed the patient's radiology results. CT Head: FINDINGS: Brain: Normal. No hemorrhage. No significant white matter disease. No edema. Ventricles: Normal. No ventriculomegaly. Bones/joints: Normal. No acute fracture. Soft tissues: Normal. Sinuses: Unremarkable as visualized. No acute sinusitis. Mastoid air cells: Unremarkable as visualized. No mastoid effusion. IMPRESSION: No acute intracranial hemorrhage. CXR: No acute CT pathology. - EKG Data EKG #1 EKG attestation: Yes: I reviewed and interpreted this EKG. EKG shows normal: sinus rhythm, axis, intervals, ST-T waves Mobile/QRS: RBBB Interpretation: normal EKG Disposition Clinical Impression: Hypoglycemia, Seizure Disposition: 02 To [facility] Time of Disposition: 01:11 - Seen By: physician
[2017-08-09] MEDS ORDERED: SODIUM CHLORIDE CONC 154 MEQ in D10W 1,000 ML IV SCH (23:30)
[2017-08-10 02:39] VITALS: BMI 35.3
[2017-08-10] MEDS ORDERED: SODIUM CHLORIDE CONC 154 MEQ in D10W 1,000 ML IV SCH (02:45)
[2017-08-10] MEDS ORDERED: ACETAMINOPHEN 325 MG TABLET PO PRN (02:45)
--- NOTE | 2017-08-10 03:28 | History & Physical Report ---
History of Present Illness Date: 08/10/17 Chief complaint: low blood sugar HPI: Please note that the patient was seen via telemedicine with nursing assistance on 08/10/2017 Mr. Canas is a 72yo man with h/o DM2 for 10 years on oral agents, HTN, obesity , Afib, bladder cancer s/p surgeries in the last year. No CAD, CVAs, or seizure activity previously. He was in usual state of health 07/10 with spaghetti for lunch and PB&J at dinner. He felt shaky and weak in bed with next memory paramedics standing over him. Blood sugar in the field said 20s with amp D50 given and in ED aft 160s went to 30s again. He uses a pill box and denies change in taking his diabetes meds or taking extra. at the bedside confirms. No fevers ,chills, nausea, sob or pain. New med include recent cipro and diflucan for ?UTI or other urologic infection (?protatits after exam with urologist in the last 10 days). Review of Systems All systems PM: 10-point ROS was reviewed, no additional remarkable complaints except Past Medical History Medical History Updates: Gout. CHF. DM. HTN. GERD. HL. A-fib Family History Updates: mother of lymphoma in the 80s. 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 Medications Home Medications Medication Instructions Recorded Confirmed Type Allopurinol 300 mg PO DAILY #0 11/07/10 08/10/17 History Furosemide [Lasix] 20 mg PO DAILY #0 11/07/10 08/10/17 History Glimepiride 2 mg PO BID #0 01/27/12 History Cinnamon Bark [Cinnamon] 500 mg PO NOON AND HS #0 06/02/13 History Sotalol HCl [Sotalol] 80 mg PO BID #0 06/02/13 08/10/17 History raNITIdine HCl [Ranitidine HCl] 150 mg PO NOON & HS #0 06/02/13 History Warfarin Sodium [Coumadin] 5 mg PO DAILY #0 05/25/14 08/10/17 History Simvastatin 40 mg PO HS #0 06/02/14 08/10/17 History Metformin HCl 850 mg PO BIDWM #0 07/16/14 08/10/17 History Gabapentin 100 mg PO TID #0 11/22/15 08/10/17 History Pantoprazole Sodium 20 mg PO DAILY #0 11/22/15 08/10/17 History Lisinopril/Hydrochlorothiazide 1 tab PO DAILY #0 03/26/16 08/10/17 History [Lisinopril-Hctz 20-12.5 mg Tab] Ciprofloxacin HCl [Ciprofloxacin 500 mg PO BID 08/10/17 08/10/17 History HCl] Fluconazole [Diflucan] 150 mg PO DAILY 08/10/17 08/10/17 History Multivit-Minerals/FA/Lycopene 1 tab PO DAILY 08/10/17 08/10/17 History [One-A-Day Men's Tablet] diphenhydrAMINE HCl [Benadryl 6.25 mg PO HS 08/10/17 08/10/17 History Allergy] Allergies Allergy/AdvReac Type Severity Reaction Status Date / Time gluten Allergy Unknown Verified 08/09/17 22:38 hydrocodone Allergy Unknown Verified 08/09/17 22:38 gemfibrozil AdvReac Severe DIARRHEA Verified 08/09/17 22:38 acetaminophen AdvReac Unknown HEADACHES Verified 08/09/17 22:38 aspirin AdvReac Unknown SENSITIVE Verified 08/09/17 22:38 STOMACH Exam Vital Signs: Temperature 97.6 F 08/10/17 02:44 Pulse Rate 93 08/10/17 02:44 Respiratory Rate 20 08/10/17 02:44 Blood Pressure 142/82 H 08/10/17 02:44 Pulse Oximetry 99 08/10/17 02:44 Telemetry Rhythm: Sinus Rhythm Height/Weight/BMI: Height 1.8 m Weight 115 kg Body Mass Index 35.3 - Constitutional Present: no acute distress, obese - Routine HEENT Exam Head: Present: normocephalic Eye: Present: EOMI - Routine Respiratory Exam Present: CTA bilaterally - Routine Cardiovascular Exam Present: RRR, S1, S2 - Routine Abdominal Exam Present: soft, normoactive bowel sounds - Routine Extremities Exam Absent: cyanosis, clubbing - Routine Skin Exam Present: intact. Absent: cyanosis - Routine Neurological Exam Present: alert, oriented X3, CN II-XII intact Results - Labs CBC & Chem 7: 12/21/17 23:32 08/09/17 23:32 Assessment and Plan (1) DM2 (diabetes mellitus, type 2) Current visit: Yes Status: Acute (2) Atrial fibrillation Current visit: Yes Status: Acute (3) Bladder cancer Current visit: Yes Status: Acute (4) Hypoglycemia Current visit: Yes Status: Acute (5) Seizure Current visit: Yes Status: Acute Assessment and Plan: 1. Seizure due to hypoglycemia which is due to DM2 oral agents agents and ? recent diflucan. Does not take CBGs normally, and uses a pill box. IVF, supportive care with tele and check A1C. 2. DM2 as above--CBGs, hold sulfonylurea and metformin 3. Atrial fibrillation--same meds, INR check 4. Bladder CA with recent infx--check UA 5. Class 2 obesity BMI 35.4 6. HTN - Physician Narrative Narrative: Date: 08/10/17 Time: 0323 Hospital Course Summary Disclaimer: The visit summary below is not to be considered part of the above Progress Note.
[2017-08-10] MEDS: CEFTRIAXONE 1 G in NS 100 ML IV SCH (06:57)
[2017-08-10] MEDS: LISINOPRIL/HCTZ 20/12.5 MG TABLET PO SCH (08:05)
[2017-08-10] MEDS: ALLOPURINOL 300 MG TABLET PO SCH (08:05)
[2017-08-10] MEDS: SOTALOL 80 MG TABLET PO SCH ×2 (08:06→21:14)
--- NOTE | 2017-08-10 08:10 | XRay Report ---
Indication: Seizure PROCEDURE: XR chest 1V: Encounter: Initial Comparison: March 08, 2016 FINDINGS: The lungs are clear. There is no abnormal airspace opacity, pleural effusion or pneumothorax identified. The heart size, pulmonary vasculature and mediastinum are within normal limits. No significant skeletal abnormality is seen. IMPRESSION: No acute cardiopulmonary abnormality. .
--- NOTE | 2017-08-10 08:11 | CT Scan Report ---
Indication: seizure PROCEDURE: CT head/brain wo con: Encounter: Initial Comparison: Head CT dated March 26, 2016 Technique: Axial CT images through the head were performed without contrast. Iterative Reconstruction dose reducing technique was utilized. FINDINGS: Mild atrophy. The ventricles are of normal size, shape, and contour for the patient's age. The brainstem, cerebellum, and cerebral hemispheres otherwise have a normal morphology and CT attenuation. There is no evidence of midline displacement. No hemorrhage, signs of acute territorial stroke, mass effect, mass lesions, or edema is evident. The visualized portions of the skull base, midface, and calvarium demonstrate no abnormality. The paranasal sinuses are well aerated and free of significant disease. The tympanic and mastoid cavities appear normal. IMPRESSION: No acute intracranial abnormality or hemorrhage. There is a preliminary report by [employer]. .
[2017-08-10] MEDS ORDERED: WARFARIN 5 MG TABLET PO SCH (09:00)
--- NOTE | 2017-08-10 11:15 | Pharmacy Consult ---
Pharmacy Consult-Warfarin - Laboratory Information 08/10/17 06:59 INR 3.14 H - Consult Information Dx: A. Fib Baseline INR = 3.14. Will give no Warfarin today. Thank you.
--- NOTE | 2017-08-10 14:32 | History & Physical Report ---
History of Present Illness Date: 08/10/17 HPI: Overnight HPI Mr. Canas is a 72yo man with h/o DM2 for 10 years on oral agents, HTN, obesity , Afib, bladder cancer s/p surgeries in the last year. No CAD, CVAs, or seizure activity previously. He was in usual state of health 07/10 with spaghetti for lunch and PB&J at dinner. He felt shaky and weak in bed with next memory paramedics standing over him. Blood sugar in the field said 20s with amp D50 given and in ED aft 160s went to 30s again. He uses a pill box and denies change in taking his diabetes meds or taking extra. at the bedside confirms. No fevers ,chills, nausea, sob or pain. New med include recent cipro and diflucan for ?UTI or other urologic infection (?protatits after exam with urologist in the last 10 days). F/u HPI Pt reports feeling shaky and dizzy for the last few days. Reports episodes of night sweats but denies f/c, n/v/d, cp or sob. Pt recently was thought to have uti after urological procedure so was put on cipro by urologist and then diflucan by his pcp. Pt repots he did have dysuria after the procedure but that has improved. Pt reports he has 2 days of diflucan left and 7 days of cipro left. Pt had episode of hypoglycemia while in the bathroom and denies any previous hx of such hypoglycemic episodes. Pt denies change in diet or meds recently. Has been on current dm meds for multiple years without any issues. Pt reports he hasn't tolerated the diflucan well and has many side effects from it. Please review previous H&P for complete note with FMH, SH, PMH and ROS. Past Medical History Patient Stated Medical History Peripheral Neuropathy Yes Other HEENT Yes: GLASSES Cardiac Arrhythmia Yes: A-FIB Hypertension Yes Sleep Apnea Yes Diabetes Mellitus Type 2 Yes Gastroesophageal Reflux Yes Disease Hiatal Hernia Yes Ulcer Yes: hx of Other GI Yes: celiac Hx Urinary Tract Infection Yes Other Yes: TESTICULAR INFECTION Clotting Problems Yes: ANTICOAGULATION Osteoarthritis Yes Other Musculoskeletal Yes: GOUT Cellulitis Yes Chemotherapy Yes: 2017 Medical History Updates: Gout. CHF. DM. HTN. GERD. HL. A-fib Family History Updates: Reviewed - Social History Smoking status: Never smoker Medications Home Medications Medication Instructions Recorded Confirmed Type Allopurinol 300 mg PO DAILY #0 11/07/10 08/10/17 History Furosemide [Lasix] 20 mg PO DAILY #0 11/07/10 08/10/17 History Glimepiride 2 mg PO BID #0 01/27/12 History Cinnamon Bark [Cinnamon] 500 mg PO NOON AND HS #0 06/02/13 History Sotalol HCl [Sotalol] 80 mg PO BID #0 06/02/13 08/10/17 History raNITIdine HCl [Ranitidine HCl] 150 mg PO NOON & HS #0 06/02/13 History Warfarin Sodium [Coumadin] 5 mg PO DAILY #0 05/25/14 08/10/17 History Simvastatin 40 mg PO HS #0 06/02/14 08/10/17 History Metformin HCl 850 mg PO BIDWM #0 07/16/14 08/10/17 History Gabapentin 100 mg PO TID #0 11/22/15 08/10/17 History Pantoprazole Sodium 20 mg PO DAILY #0 11/22/15 08/10/17 History Lisinopril/Hydrochlorothiazide 1 tab PO DAILY #0 03/26/16 08/10/17 History [Lisinopril-Hctz 20-12.5 mg Tab] Ciprofloxacin HCl [Ciprofloxacin 500 mg PO BID 08/10/17 08/10/17 History HCl] Fluconazole [Diflucan] 150 mg PO DAILY 08/10/17 08/10/17 History Multivit-Minerals/FA/Lycopene 1 tab PO DAILY 08/10/17 08/10/17 History [One-A-Day Men's Tablet] diphenhydrAMINE HCl [Benadryl 6.25 mg PO HS 08/10/17 08/10/17 History Allergy] Allergies Allergy/AdvReac Type Severity Reaction Status Date / Time gluten Allergy Unknown Verified 08/09/17 22:38 hydrocodone Allergy Unknown Verified 08/09/17 22:38 gemfibrozil AdvReac Severe DIARRHEA Verified 08/09/17 22:38 acetaminophen AdvReac Unknown HEADACHES Verified 08/09/17 22:38 aspirin AdvReac Unknown SENSITIVE Verified 08/09/17 22:38 STOMACH Exam Vital Signs: Temperature 97.5 F 08/10/17 07:41 Pulse Rate 90 08/10/17 08:06 Respiratory Rate 18 08/10/17 07:41 Blood Pressure 132/78 08/10/17 07:41 Pulse Oximetry 98 08/10/17 07:41 Height/Weight/BMI: Height 5 ft 11 in Weight 115.2 kg Body Mass Index 35.3 - Constitutional Present: no acute distress - Routine HEENT Exam Head: Present: normocephalic, atraumatic Eye: Present: EOMI, PERRL ENT: Present: mucous membranes moist - Routine Neck Exam Present: supple, full ROM - Routine Respiratory Exam Present: CTA bilaterally. Absent: wheezes, crackles - Routine Cardiovascular Exam Present: RRR, no murmur - Routine Abdominal Exam Present: soft, non distended, non tender - Routine Extremities Exam Present: no edema. Absent: cyanosis, clubbing - Routine Skin Exam Present: intact, dry. Absent: erythema - Routine Neurological Exam Present: alert, oriented X3 - Routine Psychiatric Exam Present: normal affect, normal thought process Results - Labs CBC & Chem 7: 08/09/17 23:32 08/09/17 23:32 Microbiology Results: Microbiology 08/10/17 03:31 Urine, Voided (Cc/notcc) Urine Culture - Preliminary Culture Initiated - Results Pending Assessment and Plan (1) Hypoglycemia Current visit: Yes Status: Acute (2) Seizure Current visit: Yes Status: Acute (3) DM2 (diabetes mellitus, type 2) Current visit: Yes Status: Acute (4) Atrial fibrillation Current visit: Yes Status: Acute (5) Bladder cancer Current visit: Yes Status: Acute Assessment and Plan: DM/Hypoglycemic episode -Unclear etiology, cipro/diflucan unlikey suspects -Glimepiride known to cause hypoglycemia but no previous issues -A1c 5.6, discussed with pt options for more lax control d/t age -Pt would like to decrease glimepiride dose but still stay on Cystitis -S/p procedure -On rocephin currently -Holding diflucan, cipro -Await Urine cx's Afib -Cont. sotalol, coumadin -INR 3.14, pharm dosing HTN -Cont. lisinopril/hctz HLD -Cont. simvastatin Bladder Ca -Recently had procedure with urologist Ppx -SCD - Physician Narrative Narrative: Date: 08/10/17 Time: 1428 Hospital Course Summary Disclaimer: The visit summary below is not to be considered part of the above Progress Note.
[2017-08-10] MEDS: METFORMIN 850 MG TABLET PO SCH (16:40)
[2017-08-10] MEDS ORDERED: INFLUENZA VAC High Dose 2017-18 (Fluzone HD*) (>=65yo) 0.5ml IM ONE (17:30)
[2017-08-10] MEDS ORDERED: INFLUENZA VAC. INJ. ADMIN CHARGE INJ ONE (17:51)
[2017-08-10] MEDS ORDERED: CELECOXIB 200 MG CAPSULE PO ONE (20:54)
[2017-08-10] MEDS ORDERED: Oxycodone *IR* 5 MG TABLET PO PRN (20:55)
[2017-08-10] MEDS: SIMVASTATIN 40 MG TABLET PO SCH (21:14)
[2017-08-10] MEDS: GABAPENTIN 100 MG CAPSULE PO SCH (21:14)
[2017-08-11] MEDS: CEFTRIAXONE 1 G in NS 100 ML IV SCH (05:56)
[2017-08-11] MEDS: PANTOPRAZOLE 20 MG TABLET PO SCH (05:56)
[2017-08-11] MEDS: SOTALOL 80 MG TABLET PO SCH ×2 (08:05→20:21)
[2017-08-11] MEDS: GABAPENTIN 100 MG CAPSULE PO SCH ×3 (10:19→20:20)
[2017-08-11] MEDS: FUROSEMIDE 20 MG TABLET PO SCH (10:19)
[2017-08-11] MEDS: METFORMIN 850 MG TABLET PO SCH ×2 (10:20→16:43)
[2017-08-11] MEDS: ALLOPURINOL 300 MG TABLET PO SCH (10:20)
[2017-08-11] MEDS: LISINOPRIL/HCTZ 20/12.5 MG TABLET PO SCH (10:20)
--- NOTE | 2017-08-11 10:36 | Pharmacy Consult ---
Pharmacy Consult-Warfarin - Laboratory Information 08/10/17 08/11/17 06:59 04:36 INR 3.14 H 2.72 H - Consult Information Will order warfarin 2.5mg po for noon today. Thank you.
[2017-08-11] MEDS ORDERED: WARFARIN 2.5 MG TABLET PO SCH (12:00)
[2017-08-11] MEDS: GLIMEPIRIDE 2 MG TABLET PO SCH (12:01)
[2017-08-11] MEDS: SALINE FLUSH 10ml SYRINGE IVF PRN (15:15)
[2017-08-11] MEDS ORDERED: Bisacodyl EC TAB 5 MG TABLET PO PRN (16:09)
[2017-08-11] MEDS ORDERED: PHENAZOPYRIDINE 95 MG TABLET PO PRN (16:15)
--- NOTE | 2017-08-11 16:15 | Progress Note ---
- Date 08/11/17 Subjective: Jacek is seen this evening with at the bedside. He reports that he continues to have dysuria with painful urination. He is also concerned about swelling in testicles. Reports scrotum is sore when he is up and ambulating. Denies shortness of breath or chest pain. Feels that he is constipated as bowels have not moved since admission. Objective Vital signs: Temperature 98.5 F 08/11/17 15:09 Pulse Rate 85 08/11/17 15:09 Respiratory Rate 15 08/11/17 08:00 Blood Pressure 138/79 08/11/17 15:09 Pulse Oximetry 97 08/11/17 15:09 Height/Weight/BMI: Height 1.8 m Weight 115.5 kg Body Mass Index 35.3 - Constitutional Present: no acute distress, well nourished, well developed - Routine HEENT Exam Eye: Present: EOMI ENT: Present: mucous membranes moist, dentition normal - Routine Respiratory Exam Present: CTA bilaterally. Absent: wheezes - Routine Cardiovascular Exam Present: RRR, S1, S2. Absent: murmur - Routine Abdominal Exam Present: soft, normoactive bowel sounds, non distended. Absent: tenderness - Routine Exam Testicular: Bilateral swelling Scrotal: Present: swelling, tenderness - Routine Extremities Exam Present: no edema, pulses intact, normal capillary refill - Routine Skin Exam Present: intact, dry, warm - Routine Neurological Exam Present: alert, oriented X3, CN II-XII intact - Routine Lymphatic Exam Lymphatic: Absent: adenopathy - Routine Psychiatric Exam Present: normal affect, cooperative Results - Labs CBC & Chem 7: 08/11/17 09:04 08/11/17 09:04 Microbiology Results: Microbiology 08/10/17 03:31 Urine, Voided (Cc/notcc) Urine Culture - Preliminary Escherichia coli Assessment and Plan (1) Hypoglycemia Current visit: Yes Status: Acute (2) Seizure Current visit: Yes Status: Acute (3) DM2 (diabetes mellitus, type 2) Current visit: Yes Status: Acute (4) Atrial fibrillation Current visit: Yes Status: Acute (5) Bladder cancer Current visit: Yes Status: Acute Assessment and Plan: 08/11/17 DM/Hypoglycemic episode Amaryl did decrease to 2 milligrams daily. Continue to monitor blood sugars Cystitis Continue with Rocephin for antimicrobial coverage-preliminary urine culture is positive for Escherichia coli. Since activities pending Antipyretic DM as needed for bladder pain or spasms Given continued testicular discomfort and swelling. Will obtain ultrasound of the scrotum Testicular support ordered Afib On Sotalol chronically. Coumadin dosing managed by Pharmacy. INR today 2.72 HTN Well controlled on lisinopril/hctz HLD Well controlled on simvastatin Bladder Ca -Recently had procedure with urologist- stable Ppx -SCD Constipation- Added MiraLAX, milk of magnesia, senna plus and Dulcolax for aggressive bowel motivation. Encourage ambulation Care discussed with attending, Dr Garcia - Physician Narrative Narrative: S: Pt feels about the same, denies any acute changes. Does report some night sweats last night. Denies any f/c, n/v/d, cp or sob. O: Testicules: Erythematous, swollen, mildly tender A/P: Did US of testicles and their was evidence of epididymoorchitis and possibly pyocele. Discussed these findings with Dr.Jeffrey Araujo, pt's urologist. Discussed with him the sx's pt is having as well as the physical exam of the testicles as well as the US findings. recommended keeping pt at [facility] and continuing IV abx and await cx's. He noted that US are not always the most accurate at diagnosing pyoceles and that his plan is typically to continue Abx on these patients. He noted to let him know if the status of the pt declined and then at that point he would consider a procedure and transfer of the pt to [place]. Date: 08/11/17 Time: 1911 Hospital Course Summary Disclaimer: The visit summary below is not to be considered part of the above Progress Note. Hospital Course: 08/11/17 DM/Hypoglycemic episode Amaryl did decrease to 2 milligrams daily. Continue to monitor blood sugars Cystitis Continue with Rocephin for antimicrobial coverage-preliminary urine culture is positive for Escherichia coli. Since activities pending Antipyretic DM as needed for bladder pain or spasms Given continued testicular discomfort and swelling. Will obtain ultrasound of the scrotum Testicular support ordered Afib On Sotalol chronically. Coumadin dosing managed by Pharmacy. INR today 2.72 HTN Well controlled on lisinopril/hctz HLD Well controlled on simvastatin Bladder Ca -Recently had procedure with urologist- stable Ppx -SCD Constipation- Added MiraLAX, milk of magnesia, senna plus and Dulcolax for aggressive bowel motivation. Encourage ambulation Care discussed with attending, Dr Garcia
[2017-08-11] MEDS: POLYETHYL GLYCOL 3350 17gm PACKET PO SCH (16:43)
[2017-08-11] MEDS: SENNA + DOCUSATE TABLET PO SCH (20:20)
[2017-08-11] MEDS: SIMVASTATIN 40 MG TABLET PO SCH (20:22)
[2017-08-12] MEDS: CEFTRIAXONE 1 G in NS 100 ML IV SCH (05:41)
[2017-08-12] MEDS: PANTOPRAZOLE 20 MG TABLET PO SCH (05:41)
[2017-08-12] MEDS: SALINE FLUSH 10ml SYRINGE IVF PRN ×2 (05:41→20:20)
[2017-08-12] MEDS: GABAPENTIN 100 MG CAPSULE PO SCH ×3 (08:26→20:17)
[2017-08-12] MEDS: FUROSEMIDE 20 MG TABLET PO SCH (08:26)
[2017-08-12] MEDS: LISINOPRIL/HCTZ 20/12.5 MG TABLET PO SCH (08:26)
[2017-08-12] MEDS: GLIMEPIRIDE 2 MG TABLET PO SCH (08:26)
[2017-08-12] MEDS: SOTALOL 80 MG TABLET PO SCH ×2 (08:26→20:17)
[2017-08-12] MEDS: SENNA + DOCUSATE TABLET PO SCH ×2 (08:26→20:16)
[2017-08-12] MEDS: METFORMIN 850 MG TABLET PO SCH ×2 (08:26→17:34)
[2017-08-12] MEDS: ALLOPURINOL 300 MG TABLET PO SCH (08:26)
[2017-08-12] MEDS: POLYETHYL GLYCOL 3350 17gm PACKET PO SCH (08:27)
[2017-08-12] MEDS ORDERED: ERTAPENEM 1 G INJECTION IM SCH (09:00)
[2017-08-12] MEDS ORDERED: ERTAPENEM 1 G INJECTION IV SCH (09:08)
--- NOTE | 2017-08-12 09:44 | Pharmacy Consult ---
Pharmacy Consult-Warfarin - Laboratory Information 08/10/17 08/11/17 08/12/17 06:59 04:36 04:22 INR 3.14 H 2.72 H 2.20 H - Consult Information INR is in target range. Warfarin 4mg po ordered for noon today. Thank you.
--- NOTE | 2017-08-12 09:50 | Ultrasound Report ---
Indication: testicle pain and swelling PROCEDURE: US scrotum: Encounter: Initial Comparison: July 16, 2014 FINDINGS: Both testicles are present in expected location. The testicles demonstrate a homogenous echotexture without intratesticular mass. The right testicle measures 4.1 x 3.1 x 3.6 cm, and the left testicle measures 4 x 2.8 x 3.2 cm. 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 Color Doppler imaging demonstrates symmetric, arterial flow throughout both testicles. Normal pulsed Doppler arterial and venous waveforms were obtained from each testicle. Multiseptated fluid collection in the left hemiscrotum measuring 5.2 x 3.5 x 4.7 cm in size. Increased flow to the left epididymis. Right epididymal head appears normal. Moderate size right hydrocele. Left varicocele again noted. IMPRESSION: 1. No evidence of testicular torsion or intratesticular mass. 2. Left epididymoorchitis. 3. Large complex hydrocele or pyocele in the left hemiscrotum. Short-term follow-up ultrasound may be helpful. Urologic consultation is recommended. 4. Right hydrocele. There is a preliminary report by [facility]. .
[2017-08-12] MEDS: ERTAPENEM 1 G in NS 100 ML IV SCH (09:56)
[2017-08-12] MEDS ORDERED: WARFARIN 4 MG TABLET PO SCH (12:00)
--- NOTE | 2017-08-12 14:54 | Progress Note ---
- Date 08/12/17 Subjective: Mr. Canas is about the same today. He still has burning/pain which is worse after urination. He's also feeling a little dizzy today when he stands up. He still is constipated, but denies abdominal pain or nausea and he's been able to eat well. His brought him a jock strap and this has been helpful in alleviating some of his discomfort. His scrotal pain is mostly positional, worse with ambulation. No chest pain or dyspnea. Objective Vital signs: Temperature 98.0 F 08/12/17 07:20 Pulse Rate 82 08/12/17 08:26 Respiratory Rate 16 08/12/17 07:20 Blood Pressure 137/73 08/12/17 07:20 Pulse Oximetry 98 08/12/17 07:20 Height/Weight/BMI: Height 1.8 m Weight 113.8 kg Body Mass Index 35.3 - Constitutional Present: no acute distress, well nourished, well developed - Routine HEENT Exam Head: Present: normocephalic ENT: Present: mucous membranes moist - Routine Respiratory Exam Present: CTA bilaterally - Routine Cardiovascular Exam Present: RRR, S1, S2 - Routine Abdominal Exam Present: soft, normoactive bowel sounds, non tender - Routine Extremities Exam Present: no edema, pulses intact - Routine Musculoskeletal Exam Musculoskeletal: Present: moving extremities well - Routine Skin Exam Present: intact, dry, warm - Routine Neurological Exam Present: alert, oriented X3 - Routine Psychiatric Exam Present: normal affect, normal thought process, cooperative Results - Labs CBC & Chem 7: 08/11/17 09:04 08/12/17 04:22 Microbiology Results: Microbiology 08/10/17 03:31 Urine, Voided (Cc/notcc) Urine Culture - Final Escherichia coli, ESBL Assessment and Plan (1) Hypoglycemia Current visit: Yes Status: Acute (2) Seizure Current visit: Yes Status: Acute (3) DM2 (diabetes mellitus, type 2) Current visit: Yes Status: Acute (4) Atrial fibrillation Current visit: Yes Status: Acute (5) Bladder cancer Current visit: Yes Status: Acute Assessment and Plan: 08/12/17 DM/Hypoglycemic episode No hypoglycemia 08/11-08/12. BG range 138-220. ESBL E. coli IV Abx changed to Invanz on 08/12/27. Cont symptomatic control with analgesics, pyridium, support Constipation No results after MOM this am; abd exam is benign Continue MOM daily; Miralax, Senna Plus Afib (currently in sinus) On Sotalol chronically. Coumadin dosing managed by Pharmacy. INR therapeutic HTN, HDL Well controlled on lisinopril/hctz, simvastatin Bladder Ca Recently had procedure with urologist- stable Ppx -SCD DVT Prophylaxis: SCD's Resuscitation Status: Do Not Resuscitate - Physician Narrative Narrative: S: Pt doing about the same this am. Denies any acute changes. O: Cards: RRR without murmurs Lungs: CTAB without wheezes A/P: Pt grew out ESBL in urine, changed him to ertapenem. Will monitor to see improvement, will likely need IV abx as outpatient. If worsens, will need to contact , pt's urologist. Date: 08/12/17 Time: 1530 Hospital Course Summary Disclaimer: The visit summary below is not to be considered part of the above Progress Note. Hospital Course: 08/11/17 DM/Hypoglycemic episode Amaryl did decrease to 2 milligrams daily. Continue to monitor blood sugars Cystitis Continue with Rocephin for antimicrobial coverage-preliminary urine culture is positive for Escherichia coli. Since activities pending Antipyretic DM as needed for bladder pain or spasms Given continued testicular discomfort and swelling. Will obtain ultrasound of the scrotum Testicular support ordered Afib On Sotalol chronically. Coumadin dosing managed by Pharmacy. INR today 2.72 HTN Well controlled on lisinopril/hctz HLD Well controlled on simvastatin Bladder Ca -Recently had procedure with urologist- stable Ppx -SCD Constipation- Added MiraLAX, milk of magnesia, senna plus and Dulcolax for aggressive bowel motivation. Encourage ambulation Care discussed with attending, Dr Garcia 08/12/17 ESBL pos culture - abx changed to Invanz
[2017-08-12] MEDS: SIMVASTATIN 40 MG TABLET PO SCH (20:16)
[2017-08-13] MEDS ORDERED: MAG-AL + SIM ORAL LIQUID 30ml PO PRN (02:42)
[2017-08-13] MEDS: PANTOPRAZOLE 20 MG TABLET PO SCH (05:30)
--- NOTE | 2017-08-13 07:19 | Pharmacy Consult ---
Pharmacy Consult-Warfarin - Laboratory Information 08/10/17 08/11/17 08/12/17 06:59 04:36 04:22 INR 3.14 H 2.72 H 2.20 H 08/13/17 04:28 INR 1.90 H 72yo M admitted through ED with hypoglycemia. Hx of Seizures, T2DM, Bladder Ca, A. Fib. Home dose of Warfarin reported as 5mg po daily. Has drug - drug interaction with Simvastatin 40mg po daily which can increase INR level. Today's INR = 1.90 Will increase Warfarin dose back to home dose of 5mg po daily. Thank you.
[2017-08-13] MEDS: METFORMIN 850 MG TABLET PO SCH ×2 (08:15→17:28)
[2017-08-13] MEDS: SOTALOL 80 MG TABLET PO SCH ×2 (08:15→21:33)
[2017-08-13] MEDS: ALLOPURINOL 300 MG TABLET PO SCH (08:15)
[2017-08-13] MEDS: SENNA + DOCUSATE TABLET PO SCH ×2 (08:15→21:33)
[2017-08-13] MEDS: LISINOPRIL/HCTZ 20/12.5 MG TABLET PO SCH (08:15)
[2017-08-13] MEDS: GLIMEPIRIDE 2 MG TABLET PO SCH (08:15)
[2017-08-13] MEDS: GABAPENTIN 100 MG CAPSULE PO SCH ×3 (08:15→21:33)
[2017-08-13] MEDS: ERTAPENEM 1 G in NS 100 ML IV SCH (08:16)
[2017-08-13] MEDS: FUROSEMIDE 20 MG TABLET PO SCH (08:16)
[2017-08-13] MEDS: POLYETHYL GLYCOL 3350 17gm PACKET PO SCH (08:16)
[2017-08-13] MEDS ORDERED: WARFARIN 5 MG TABLET PO SCH (12:00)
--- NOTE | 2017-08-13 14:07 | Progress Note ---
- Date 08/13/17 Subjective: reports he's feeling much better today. His dysuria has resolved and night sweats are improved. Unclear if scrotal swelling is improved. Denies any cp, n/v/d, f/c, sob. Objective Vital signs: Temperature 97 F 08/13/17 07:21 Pulse Rate 79 08/13/17 08:15 Respiratory Rate 16 08/13/17 07:21 Blood Pressure 143/73 H 08/13/17 07:21 Pulse Oximetry 95 08/13/17 07:21 Height/Weight/BMI: Height 5 ft 11 in Weight 112.8 kg Body Mass Index 35.3 - Constitutional Present: no acute distress - Routine HEENT Exam Head: Present: normocephalic, atraumatic Eye: Present: EOMI, PERRL ENT: Present: mucous membranes moist - Routine Respiratory Exam Present: CTA bilaterally. Absent: wheezes, crackles - Routine Cardiovascular Exam Present: RRR, no murmur - Routine Abdominal Exam Present: soft, non distended, non tender - Routine Extremities Exam Present: no edema. Absent: cyanosis, clubbing - Routine Skin Exam Present: intact, dry. Absent: erythema - Routine Neurological Exam Present: alert, oriented X3 - Routine Psychiatric Exam Present: normal affect Results - Labs CBC & Chem 7: 08/11/17 09:04 08/12/17 04:22 Microbiology Results: Microbiology 08/10/17 03:31 Urine, Voided (Cc/notcc) Urine Culture - Final Escherichia coli, ESBL Assessment and Plan (1) Hypoglycemia Current visit: Yes Status: Acute (2) Seizure Current visit: Yes Status: Acute (3) DM2 (diabetes mellitus, type 2) Current visit: Yes Status: Acute (4) Atrial fibrillation Current visit: Yes Status: Acute (5) Bladder cancer Current visit: Yes Status: Acute Assessment and Plan: 08/12/17 DM/Hypoglycemic episode -BG have been controlled in the hospital -decreased gliperide dose -On metformin and gliperide ESBL E. coli UTI -IV Abx changed to Invanz on 08/12/27. -Cont symptomatic control with analgesics, pyridium, support epididymoorchitis and possibly pyocele -Swollen testicle, US showed infection -Discussed case with of [facility] (pt's urologist), he recommended IV abx unless pt decompensates Afib (currently in sinus) -On Sotalol chronically. Coumadin dosing managed by Pharmacy HTN, HDL -Well controlled on lisinopril/hctz, simvastatin Bladder Ca -Recently had procedure with urologist- stable Ppx -SCD - Physician Narrative Narrative: Date: 08/13/17 Time: 1404 Hospital Course Summary Disclaimer: The visit summary below is not to be considered part of the above Progress Note. Hospital Course: 08/11/17 DM/Hypoglycemic episode Amaryl did decrease to 2 milligrams daily. Continue to monitor blood sugars Cystitis Continue with Rocephin for antimicrobial coverage-preliminary urine culture is positive for Escherichia coli. Since activities pending Antipyretic DM as needed for bladder pain or spasms Given continued testicular discomfort and swelling. Will obtain ultrasound of the scrotum Testicular support ordered Afib On Sotalol chronically. Coumadin dosing managed by Pharmacy. INR today 2.72 HTN Well controlled on lisinopril/hctz HLD Well controlled on simvastatin Bladder Ca -Recently had procedure with urologist- stable Ppx -SCD Constipation- Added MiraLAX, milk of magnesia, senna plus and Dulcolax for aggressive bowel motivation. Encourage ambulation Care discussed with attending, Dr Garcia 08/12/17 ESBL pos culture - abx changed to Invanz 08/13/17 14:12 Pt doing much better on Invanz, will monitor and try to set up outpatient IV abx tomorrow with possible discharge.
[2017-08-13] MEDS: SIMVASTATIN 40 MG TABLET PO SCH (21:33)
[2017-08-14] MEDS: PANTOPRAZOLE 20 MG TABLET PO SCH (06:08)
[2017-08-14] MEDS: METFORMIN 850 MG TABLET PO SCH ×2 (08:24→17:41)
[2017-08-14] MEDS: LISINOPRIL/HCTZ 20/12.5 MG TABLET PO SCH (08:24)
[2017-08-14] MEDS: SOTALOL 80 MG TABLET PO SCH (08:24)
[2017-08-14] MEDS: GABAPENTIN 100 MG CAPSULE PO SCH ×2 (08:25→17:09)
[2017-08-14] MEDS: ALLOPURINOL 300 MG TABLET PO SCH (08:25)
[2017-08-14] MEDS: ERTAPENEM 1 G in NS 100 ML IV SCH (08:25)
[2017-08-14] MEDS: GLIMEPIRIDE 2 MG TABLET PO SCH (08:25)
[2017-08-14] MEDS: SENNA + DOCUSATE TABLET PO SCH ×2 (08:25→12:51)
[2017-08-14] MEDS: FUROSEMIDE 20 MG TABLET PO SCH (08:25)
[2017-08-14] MEDS: POLYETHYL GLYCOL 3350 17gm PACKET PO SCH (08:26)
--- NOTE | 2017-08-14 10:28 | Pharmacy Consult ---
Pharmacy Consult-Warfarin - Laboratory Information 08/10/17 08/11/17 08/12/17 06:59 04:36 04:22 INR 3.14 H 2.72 H 2.20 H 08/13/17 08/14/17 04:28 04:58 INR 1.90 H 2.14 H - Consult Information 72yo M admitted through ED with hypoglycemia. History of Seizures, T2DM, Bladder Ca, A. Fib. Home dose of Warfarin reported as 5mg p.o. daily. Warfarin interacts with Simvastatin 40mg p.o. daily which can increase INR level. Today's INR is 2.14. I will continue the home dose Warfarin dose of 5mg po daily. Thank you for the Warfarin dosing Protocol, Elmer Fallon, Pharmacist.
[2017-08-14] MEDS ORDERED: WARFARIN 5 MG TABLET PO SCH (12:00)
--- NOTE | 2017-08-14 12:14 | Ultrasound Report ---
Indication: scrotal swelling/infection/poss abscess PROCEDURE: US scrotum: Encounter: Initial Comparison: Ultrasound dated August 11, 2017 FINDINGS: Testicles are stable in appearance with a small anechoic cyst on the right side measuring 4 to 5 mm in size. Right epididymal head appears shows a 1 cm epididymal head cyst. Normal Doppler flow to the right testicle. Small right hydrocele. 4 mm echogenic lesion near the right epididymal head consistent with a scrotal joe. Normal arterial and venous waveform seen from the right testicle. Left testicle shows normal blood flow with arterial and venous waveforms obtained. Left epididymal head is normal in size with continued increased vascularity. The complex multi septated mixed echogenicity collection in the left hemiscrotum has decreased in size. This now measures 3.6 x 2.4 x 4.1 in size, decreased from 5.2 x 3.5 x 4.7 cm previously. Small stable intratesticular calcifications bilaterally. Echogenic lesion inferior to the left testicle with increased flow measuring 3.9 x 3.1 x 2.4 cm of uncertain etiology. Impression: 1. Decreasing size of the complex collection in the left hemiscrotum that could represent subacute hematoma or abscess. 2. Indeterminate vascularized lesion inferior to the left testicle. 3. No evidence of testicular mass or torsion. 4. Continued evidence of left epididymitis. .
[2017-08-14] MEDS ORDERED: NS FLUSH BAG 500ml IV PRN (12:17)
[2017-08-14 15:32] VITALS: BP 138/67; RESP 18; TEMP 98.9; O2SAT 93
--- NOTE | 2017-08-14 15:47 | Discharge Summary ---
Discharge Information Date of admission: 08/10/17 01:07 Anticipated date of discharge: 08/14/17 Attending Physician: Juanita Garcia MD Primary care physician: Reji Cervantes II, MD - Discharge Diagnosis (1) Hypoglycemia Status: Acute (2) Seizure Status: Acute (3) DM2 (diabetes mellitus, type 2) Status: Acute (4) Atrial fibrillation Status: Acute (5) Bladder cancer Status: Acute DM/Hypoglycemic episode ESBL E. coli UTI epididymoorchitis and possibly pyocele Afib (currently in sinus) HTN, HDL Bladder Ca - Laboratory Labs: CBC 08/14/17 04:58 WBC 7.7 RBC 3.91 L Hgb 12.4 L Hct 38.3 L Plt Count 285 Neut % (Auto) 59.1 Abs Immat Gran (auto) 0.07 H INR 08/10/17 08/11/17 08/12/17 06:59 04:36 04:22 INR 3.14 H 2.72 H 2.20 H 08/13/17 08/14/17 04:28 04:58 INR 1.90 H 2.14 H BMP 08/14/17 04:58 Sodium 136 Potassium 4.5 Chloride 97 L Carbon Dioxide 32 H BUN 17.0 Creatinine 0.8 Glucose 126 H Calcium 9.5 Albumin 3.1 L Urinalysis 08/10/17 03:31 Urine Color Yellow Urine Clarity Sl cloudy Urine pH 6.0 Ur Specific [place] 1.010 L Urine Protein Negative Urine Glucose (UA) Negative Urine Ketones Negative Urine Occult Blood Trace-intact Urine Nitrate Positive A Urine Bilirubin Negative Urine Urobilinogen 0.2 Ur Leukocyte Esterase 2+ A Urine RBC 0-1 Urine WBC 50-200 H Urine Bacteria 2+ H - Microbiology Microbiology 08/10/17 03:31 Urine, Voided (Cc/notcc) Urine Culture - Final Escherichia coli, ESBL - sensitive to Augmentin, ertapenem, gentamicin, nitrofurantoin, pip/Tazo, trobramycin History of Present Illness HPI: Overnight HPI Mr. Canas is a 72yo man with h/o DM2 for 10 years on oral agents, HTN, obesity , Afib, bladder cancer s/p surgeries in the last year. No CAD, CVAs, or seizure activity previously. He was in usual state of health 07/10 with spaghetti for lunch and PB&J at dinner. He felt shaky and weak in bed with next memory paramedics standing over him. Blood sugar in the field said 20s with amp D50 given and in ED aft 160s went to 30s again. He uses a pill box and denies change in taking his diabetes meds or taking extra. at the bedside confirms. No fevers ,chills, nausea, sob or pain. New med include recent cipro and diflucan for ?UTI or other urologic infection (?protatits after exam with urologist in the last 10 days). F/u HPI Pt reports feeling shaky and dizzy for the last few days. Reports episodes of night sweats but denies f/c, n/v/d, cp or sob. Pt recently was thought to have uti after urological procedure so was put on cipro by urologist and then diflucan by his pcp. Pt repots he did have dysuria after the procedure but that has improved. Pt reports he has 2 days of diflucan left and 7 days of cipro left. Pt had episode of hypoglycemia while in the bathroom and denies any previous hx of such hypoglycemic episodes. Pt denies change in diet or meds recently. Has been on current dm meds for multiple years without any issues. Pt reports he hasn't tolerated the diflucan well and has many side effects from it. Please review previous H&P for complete note with FMH, SH, PMH and ROS. Objective Vital signs: Temperature 98.9 F 08/14/17 15:28 Pulse Rate 90 08/14/17 15:28 Respiratory Rate 18 08/14/17 15:28 Blood Pressure 138/67 08/14/17 15:28 Pulse Oximetry 93 08/14/17 15:28 Height/Weight/BMI: Height 1.8 m Weight 111.7 kg Body Mass Index 35.3 - Constitutional Present: well nourished, well developed, obese - Routine Respiratory Exam Present: CTA bilaterally. Absent: wheezes - Routine Cardiovascular Exam Present: RRR. Absent: murmur - Routine Abdominal Exam Present: soft, normoactive bowel sounds, non distended. Absent: tenderness - Routine Exam Scrotal: Present: swelling (L>R. Erythema to entire scrotal sac.), tenderness, erythema - Routine Extremities Exam Present: no edema, normal capillary refill - Routine Skin Exam Present: dry, warm - Routine Neurological Exam Present: alert, oriented X3, CN II-XII intact - Routine Lymphatic Exam Lymphatic: Absent: adenopathy - Routine Psychiatric Exam Present: normal affect, cooperative Hospital Course This is a general summary of the patient's hospital course. For more details refer to the complete medical record. Hospital course: 08/11/17 DM/Hypoglycemic episode Amaryl did decrease to 2 milligrams daily. Continue to monitor blood sugars Cystitis Continue with Rocephin for antimicrobial coverage-preliminary urine culture is positive for Escherichia coli. Since activities pending Antipyretic DM as needed for bladder pain or spasms Given continued testicular discomfort and swelling. Will obtain ultrasound of the scrotum Testicular support ordered Afib On Sotalol chronically. Coumadin dosing managed by Pharmacy. INR today 2.72 HTN Well controlled on lisinopril/hctz HLD Well controlled on simvastatin Bladder Ca -Recently had procedure with urologist- stable Ppx -SCD Constipation- Added MiraLAX, milk of magnesia, senna plus and Dulcolax for aggressive bowel motivation. Encourage ambulation Care discussed with attending, Dr Garcia 08/12/17 ESBL pos culture - abx changed to Invanz 08/13/17 Pt doing much better on Invanz, will monitor and try to set up outpatient IV abx tomorrow with possible discharge. 08/14/17 Patient continues to improve. Repeat scrotal sono shows decreasing size of the complex collection in the L hemiscrotum that could represent subacute hematoma or abscess. Dr. Garcia has discussed with pt's urologist - Dr. Sherley Araujo. He will see pt for f-u in his office within the next 10 days. Pt will continue on ertapenem daily for a total of 14 days (through Aug 26). Blood sugars have been stable since admission. Repeat protime on Aug 17 - pt is sent home on his 5mg qd dosing of coumadin. Time spent with patient: discharge greater than 30 minutes DVT Prophylaxis: Coumadin Discharge Plan - Discharge Disposition Discharge Date: 08/14/17 Disposition: 01 Discharged Home, Self-Care *Condition: Stable Reason For Visit (Visit label in EMR): Hypoglycemia - Discharge Medications *Discharge Medications: New Ertapenem [INVanz] 1 g IV DAILY 11 Days #11 unit Continue Furosemide [Lasix] 20 mg PO DAILY #0 Glimepiride 2 mg PO BID #0 Sotalol HCl [Sotalol] 80 mg PO BID #0 Metformin HCl 850 mg PO BIDWM #0 diphenhydrAMINE HCl [Benadryl Allergy] 6.25 mg PO HS Allopurinol 300 mg PO DAILY #0 Cinnamon Bark [Cinnamon] 500 mg PO NOON AND HS #0 Warfarin Sodium [Coumadin] 5 mg PO DAILY #0 Simvastatin 40 mg PO HS #0 Gabapentin 100 mg PO TID #0 Pantoprazole Sodium 20 mg PO DAILY #0 Lisinopril/Hydrochlorothiazide [Lisinopril-Hctz 20-12.5 mg Tab] 1 tab PO DAILY #0 Multivit-Minerals/FA/Lycopene [One-A-Day Men's Tablet] 1 tab PO DAILY Discontinued raNITIdine HCl [Ranitidine HCl] 150 mg PO NOON & HS #0 Fluconazole [Diflucan] 150 mg PO DAILY Ciprofloxacin HCl [Ciprofloxacin HCl] 500 mg PO BID - Discharge Packet/Instructions *Diet: Diabetic diet *Activity: As tolerated *Pain Management/Treatment: Tylenol as needed. Wear support for comfort. *Wound Care: n/a Additional Instructions: Dr. Araujo's office will call you to schedule an appointment to see him within the next 10 days. Come in daily through Aug 26 for IV antibiotic infusions. Continue warfarin 5mg daily. Recheck protime/INR on 07/20/17. *Expected Signs/Symptoms: Continued improvement in pain and swelling *Notify Physician if: You run a fever, have worsening pain or increase in scrotal swelling *During Business Hours Contact: Your primary care provider *After Business Hours Contact: Your primary care provider's office and follow after hours instructions or call/present to ER *Pending Lab/Results: No Pending Lab - Referrals/Follow Up *Referrals/Follow Up: Reji Cervantes II, MD [Family Provider] - 1 Week () Jg Araujo MD [Physician] - (their office will call you to make an appointment Nurse/repair service clerk to please fax a copy of pt's ultrasound reports to Dr. Araujo.) - Patient Handouts - Dismissal Complete Discharge Instructions are:: Complete Physician Narrative - Narrative Attestation Narrative: S: Pt reports he's feeling much better. Denies any n/v/d, f/c, cp or sob. Dysuria and testicular tenderness has resolved. Swelling has improved a little. Pt feels good to go home. O: Cards: RRR without murmurs Lungs: CTAB without wheezes A/P: Pt doing well. Discussed case with of ID and she recommended 14 days of outpatient IV treatment. Discussed discharge plan with Dr.Jeffrey Araujo, urologist for pt, and he agreed with discharge plan. Repeat US showed improvement of possible abscess/pyocele in testicle but it was still present and this was discussed with . He recommended continuation of abx tx and his office will call pt to be seen in the next 10 days. Pt was informed of this follow up plan and to check with 's office if he was not contacted. Pt was also instructed to follow up with pcp in 7-10 days. Pt's glimepiride was decreased to once a day (from BID) and pt did not have any further hypoglycemic episodes in the hospital. Further management and a1c goals should be discussed with pcp as to avoid future hypoglycemic episodes. Date: 08/14/17 Time: 1700
[2017-08-14 17:50] VITALS: PULSE 92
== END 2017-08-14 17:52 | disposition home or self-care (01) | DRG 638 ==
LOC: ED 22:20 → MED 08-10 01:36
PROVIDERS: ADMIT Hospitalist; ATTEND Internal Medicine